=== PATIENT | female | born 1945 | race Caucasian/White ===

== ENCOUNTER 2023-05-23 10:42 | Outpatient (AMB) | payer MEDICARE, SELFPAY ==
--- NOTE | 2023-05-23 10:45 | A.OFFVIS_ITS ---
Intake Vital Signs 05/23/23 10:52 Height 5 ft 4 in Weight 174 lb BMI 29.9 BP 145/71 H Blood Pressure Location Lt brachial Position Sitting Respiration 14 Pulse 93 Pulse Source Pulse Oximeter Pulse Oximetry (%) 98 Oxygen Delivery Method Room Air Intake Visit Reasons: LOW BACK PAIN Allergies codeine Adverse Reaction (Intermediate, Verified 05/23/23 10:53) Nausea and Vomiting Medication List - Last Reconciled 05/23/23 by Lilia Corea LPN acetaminophen 1,000 mg PO Q6H PRN alpha lipoic acid 600 mg PO BID antiarthritic combination no.2 (glucosamine-chondroitin) mg PO atorvastatin 10 mg PO BEDTIME biotin mcg PO butterbur root extract (Petadolex) mg PO chlorthalidone 25 mg PO DAILY cholecalciferol (vitamin D3) 25 mcg PO DAILY gabapentin 100 mg PO TID levothyroxine 50 mcg PO DAILY multivitamin 1 tab PO DAILY valsartan 80 mg PO BID verapamil ER 240 mg PO DAILY HPI LOW BACK PAIN HPI Details 74-year-old female who presents today to the office for a new patient evaluation of low back pain. The pain is localized to the left SIJ area that started in 2021. It is described as an aching, stabbing sensation. It is rated at 7-8/10 in intensity. The pain starts in the low SI joint area and radius towards the left buttock and then radiates down to her mid-thigh area. The pain is worse when she first wakes up in the morning, when it is rated at 9/10, but it improves. Tylenol and oral medications make it better. She is currently taking gabapentin 100 milligrams of 1-3 tablets as needed in addition to extra strength Tylenol three times a day. She had two sacroiliac joint injections with Dr. Zeng that provided 80% relief for a few hours. She was referred to us for consideration of left sacroiliac joint nerve stimulation therapy. There was also a question of possible facet disease. She has not had any facet blocks yet. The patient has knee pain. The patient had cortisone injection in the past which lasted about 3-4 weeks. She is scheduled for gel injection for her knee pain. [facility] Medical History (Updated 05/23/23 @ 16:34 by Jama Hull MD) Lumbar facet arthropathy Disorder of sacrum Review of Systems Const All systems reviewed & are unremarkable except as noted in HPI and below Physical Exam Vital Signs: Last Vital Signs Pulse 93 05/23/23 10:52 Resp 14 05/23/23 10:52 BP 145/71 H 05/23/23 10:52 Pulse Ox 98 05/23/23 10:52 Oxygen Delivery Method Room Air 05/23/23 10:52 BMI result Body Mass Index 29.9 General: Appears afebrile. Alert and oriented. Mood and affect appropriate. Follows and participates in conversation appropriately. Respiratory effort is unlabored. Able to transition from sit to stand unassisted. Ambulates with bilaterally normal heel strike and toe off. Significant tenderness on palpation overlying left SI joint. Results Reviewed Results Reviewed: No imaging is available for review. 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 I will place a referral for psychology clearance. Once we have received psychology clearance, we will plan for a trial of left medial cluneal nerve stimulator trial with a [employer] device. The patient will receive a call from [employer] for the psychology assessment. I also talked about temporary nerve stimulation of medial branches for facet mediated pain that we can attempt in case of incomplete relief with PNS implant. Justification for interventional therapy: * Patient with average pain > 6/10 * Patient has exhausted conservative therapy including physical therapy and oral medications * Diagnostic nerve block provided 80% relief during the anesthetic phase, twice Scribed for Dr. Hull by Jasson Wayne, medical office receptionist, on 05/23/2023. I, Dr. Hull, have personally reviewed and agree with the information entered by the scribe. Coding Level of Care Code New Pt Level 4 (91575) Diagnoses Cluneal neuropathy G58.8 Sacroiliac joint dysfunction M53.3
[2023-05-23 10:52] VITALS: BP 145/71; PULSE 93; RESP 14; O2SAT 98; BMI 29.9
== END 2023-05-23 11:19 | disposition home or self-care (01) ==
PROVIDERS: PCP Physical Medicine & Rehabilitation; Visit Provider Internal Medicine
DX: M53.3 Sacrococcygeal disorders, not elsewhere classified (principal); G58.8 Other specified mononeuropathies
CPT/HCPCS: 99204

== ENCOUNTER → 2023-05-23 10:42 | Outpatient (BNVA) | payer MEDICARE, SELFPAY | PROVIDERS: PCP Physical Medicine & Rehabilitation; Visit Provider Internal Medicine ==

== ENCOUNTER 2023-08-10 10:44 | Day surgery (SDC) | payer MEDICARE, SELFPAY ==
--- NOTE | 2023-08-09 13:21 | HO.ANESPROP2 ---
Documented by User: Kirsten Navas NP 08/09/23 13:22 HPI - Anesthesia Eval Consult details Narrative: 77yo F for Left Cluneal Nerve Stim Trial Per med list, incomplete PMHx provided by surgical office. Likely htn, hld, hypothyroid PMFSH Active Problems Active Problems: All Active Problems (Updated 05/23/23 @ 16:34 by Jama Hull MD) Sacroiliac joint dysfunction (Acute) Cluneal neuropathy (Acute) Past Medical History Medical History (Updated 05/23/23 @ 16:34 by Jama Hull MD) Lumbar facet arthropathy Disorder of sacrum Surgical History Surgical History (Updated 08/10/23 @ 11:21 by Stacie Duncan) H/O breast surgery Previous section Social History Social History Patient Tobacco Use Status: Never used Tobacco Use of substances other than those prescribed or required for medical reasons: No Are you DNR?: No Advance Directives: No Advance Directives Information Provided: Yes Meds Allergies Allergy/AdvReac Type Severity Reaction Status Date / Time codeine AdvReac Intermediate Nausea and Verified 08/10/23 11:21 Vomiting Home Medications Medication Instructions Recorded Confirmed Last Taken Type acetaminophen 500 mg capsule 1,000 mg PO Q6H PRN Pain 05/23/23 08/10/23 Unknown History alpha lipoic acid 600 mg capsule 600 mg PO BID 05/23/23 08/10/23 Unknown History antiarthritic combination no.2 900 900 mg PO DAILY 05/23/23 08/10/23 Unknown History mg tablet (glucosamine-chondroitin) atorvastatin 10 mg tablet 10 mg PO BEDTIME 05/23/23 08/10/23 08/10/23 History biotin 5,000 mcg chewable tablet 5,000 mcg PO DAILY 05/23/23 08/10/23 Unknown History butterbur root extract 75 mg 75 mg PO BID 05/23/23 08/10/23 08/10/23 History capsule (Petadolex) chlorthalidone 25 mg tablet 25 mg PO DAILY 05/23/23 08/10/23 08/10/23 History cholecalciferol (vitamin D3) 25 25 mcg PO DAILY 05/23/23 08/10/23 Unknown History mcg (1,000 unit) capsule gabapentin 100 mg capsule 100 mg PO TID 05/23/23 08/10/23 Unknown History levothyroxine 50 mcg capsule 50 mcg PO DAILY 05/23/23 08/10/23 Unknown History multivitamin 1 tab PO DAILY 05/23/23 08/10/23 Unknown History valsartan 80 mg tablet 80 mg PO BID 05/23/23 08/10/23 08/10/23 History verapamil 240 mg 24 hr 240 mg PO DAILY 05/23/23 08/10/23 08/09/23 History capsule,extended release Assessment and Plan Assessment Anesthesia Assessment: Chart Reviewed Documented by User: Juju Eckert MD 08/10/23 13:52 [facility] Past Medical History Medical History (Updated 05/23/23 @ 16:34 by Jama Hull MD) Lumbar facet arthropathy Disorder of sacrum Family History Family history of problems with anesthesia: No Surgical History Surgical History (Updated 08/10/23 @ 11:21 by Stacie Duncan) H/O breast surgery Previous section History of Problems with Anesthesia: No Social History Social History Patient Tobacco Use Status: Never used Tobacco Use of substances other than those prescribed or required for medical reasons: No Are you DNR?: No Advance Directives: No Advance Directives Information Provided: Yes Meds Allergies Allergy/AdvReac Type Severity Reaction Status Date / Time codeine AdvReac Intermediate Nausea and Verified 08/10/23 11:21 Vomiting Home Medications Medication Instructions Recorded Confirmed Last Taken Type acetaminophen 500 mg capsule 1,000 mg PO Q6H PRN Pain 05/23/23 08/10/23 Unknown History alpha lipoic acid 600 mg capsule 600 mg PO BID 05/23/23 08/10/23 Unknown History antiarthritic combination no.2 900 900 mg PO DAILY 05/23/23 08/10/23 Unknown History mg tablet (glucosamine-chondroitin) atorvastatin 10 mg tablet 10 mg PO BEDTIME 05/23/23 08/10/23 08/10/23 History biotin 5,000 mcg chewable tablet 5,000 mcg PO DAILY 05/23/23 08/10/23 Unknown History butterbur root extract 75 mg 75 mg PO BID 05/23/23 08/10/23 08/10/23 History capsule (Petadolex) chlorthalidone 25 mg tablet 25 mg PO DAILY 05/23/23 08/10/23 08/10/23 History cholecalciferol (vitamin D3) 25 25 mcg PO DAILY 05/23/23 08/10/23 Unknown History mcg (1,000 unit) capsule gabapentin 100 mg capsule 100 mg PO TID 05/23/23 08/10/23 Unknown History levothyroxine 50 mcg capsule 50 mcg PO DAILY 05/23/23 08/10/23 Unknown History multivitamin 1 tab PO DAILY 05/23/23 08/10/23 Unknown History valsartan 80 mg tablet 80 mg PO BID 05/23/23 08/10/23 08/10/23 History verapamil 240 mg 24 hr 240 mg PO DAILY 05/23/23 08/10/23 08/09/23 History capsule,extended release Exam Airway Mallampati Class: II (multiple caps laterally) TM Dist: >3cm Neck ROM: Full Heart: rrr Lungs: cta Assessment and Plan Assessment Anesthesia Assessment: Anesthesia Plan Discussed Final Anesthetic Review Family History of Problems with Anesthesia: No History of Problems with Anesthesia: No NPO: Yes ASA Class: II Final Preanesthetic Review: No Changes in Pt Med Stat, Meds/Allgs Chart Reviewed and Consent Obtained/Reviewed Patient Risk: Intermediate Procedure Risk: Intermediate Anesthetic Plan Anesthetic Plan: MAC: Disposition: Standard PACU
--- NOTE | ~2023-08-10 | FL_ITS ---
EXAMINATION: XR FLUOROSCOPY WITH IMAGES CLINICAL INFORMATION: Cluneal nerve Stim trial. COMPARISON: None available. TECHNIQUE: Fluoroscopy Supervised By: Dr. Jama Hull. Fluoroscopy Time: 29.4 seconds. Cumulative Dose: 10.76 mGy. DAP: Not available on this machine. Images: 5. FINDINGS: Images demonstrate needle or cannula followed by lead projecting over the soft tissues over the left posterior lower lumbar spine and sacrum. FL/FL guidance in OR IMPRESSION: Fluoroscopy guidance for pain management procedure.
[2023-08-10 11:25] VITALS: BP 147/70; PULSE 94; RESP 16; TEMP 36.3; O2SAT 99; BMI 29.4
[2023-08-10] MEDS: Lactated Ringers 1,000 ML 100 ML IVCONT (12:19)
[2023-08-10 13:23] LABS: MRSA Nasal PCR NEGATIVE (Negative); SA Nasal PCR NEGATIVE (Negative)
[2023-08-10 14:55] VITALS: BP 137/68; PULSE 79; RESP 13; TEMP 36.1; O2SAT 100
--- NOTE | 2023-08-10 15:05 | MHC.SHP ---
Pre-Procedural Eval Section A Date of Service: 08/10/23 The patient is an INPATIENT: No Changes since office visit: Yes Patient answered all questions The History & Physical has been completed within 30 days and I have reviewed it.: No Section B Chief Complaint: Other specified mononeuropathies Relevant Family History (Specify if Yes): No Relevant Social History: None Present Medications: see Short Stay Collaborative assessment Medical History: No relevant PMH History of Previous Operations: No relevant previous surgery Allergies: Allergies Allergy/AdvReac Type Severity Reaction Status Date / Time codeine AdvReac Intermediate Nausea and Verified 08/10/23 11:21 Vomiting Review of Systems Sugical H&P ROS: Negative: Constitution, Cardiovascular and Respiratory Exam Surgical H&P Exam: Normal: HEENT, Normal: Heart and Normal: Lungs Plan Diagnosis/Plan: Unchanged I have reviewed the history and physical and performed a pertinent physical examination on my patient. No changes have occurred unless specified. Time Spent With Patient Time: Total time managing care of this patient today ____ minutes.
--- NOTE | 2023-08-10 15:06 | PM.OP ---
Brief Operative Note Date of Service: 08/10/23 Pre-op diagnosis: Medial cluneal neuropathy, sacroiliac joint dysfunction, Bertolotti syndrome, intractable low back pain Post-op diagnosis: same Procedure: Medial cluneal nerve stimulation trial Implants: Curonix PNS trial lead Surgeon: Jama Hull MD Anesthesia: MAC Was an Special Warfare Combatant Crewman used for this Procedure?: No Estimated blood loss (mL): 3 Pathology: none sent Condition: stable Disposition: PACU
--- NOTE | 2023-08-10 15:07 | P.OP_ITS ---
Operative Note Operative Note Date of Service: 08/10/23 Narrative: Percutaneous trial of peripheral nerve stimulation of Medial Cluneal Nerve, Left After obtaining written consent, pre-procedure blood pressure and heart rate were stable and recorded in the nursing record. A peripheral IV was started. Antibiotics, cefazolin 2 grams, were given prior to the start of the procedure. The patient was positioned in prone position and sedated by the fine arts packer. The left lumbosacral area was widely prepped with chloraprep and draped in sterile fashion. Using fluoroscopy, the needle entry location was estimated on left side of the lumbar area. The skin at the insertion site was anesthetized with 0.5% lidocaine. A 14 gauge coude needle was used as an introducer. The introducer was advanced subcutaneously along the length of the lumbar paraspinal muscles until contact was established with the sacrum. The introducer was then rotated and walked off the edge of the sacrum overlying the medial cluneal nerves. The stylet was removed. The electrode array was passed through the introducer using a tenting approach at a shallow angle. Fluoroscopy was used to confirm appropriate lead position. Stimulation was performed with the patient awake and good coverage was obtained. The lead was secured using ticron sutures, steri- strips and tegaderms. The patient tolerated the procedure well. No complications were encountered. Following the procedure the patient's vital signs were stable. The patient was discharged home in good condition with post-procedural instructions. Time Out: Immediately prior to the procedure, the following was verbally confirmed that there is a signed consent form and that the correct patient, planned procedure, site and side are consistent with documentation and that necessary equipment and/or blood products are available prior to the start of the case. Complications: none EBL: <5 cc
[2023-08-10 15:10] VITALS: BP 136/65; PULSE 68; RESP 14; O2SAT 100
[2023-08-10 15:25] VITALS: BP 157/81; PULSE 72; RESP 16; O2SAT 100
[2023-08-10 15:40] VITALS: BP 144/66; PULSE 72; RESP 16; TEMP 36.1; O2SAT 100
== END 2023-08-10 15:50 | disposition home or self-care (01) ==
PROVIDERS: Registered Nurse Emergency; PCP Internal Medicine; Visit Provider Internal Medicine
PROC: (CPT 64555; principal; 2023-08-10 12:20)
DX: G58.8 Other specified mononeuropathies (principal); M54.50 Low back pain, unspecified; M46.1 Sacroiliitis, not elsewhere classified; Q76.49 Other congenital malformations of spine, not associated with scoliosis; M46.96 Unspecified inflammatory spondylopathy, lumbar region; Z79.899 Other long term (current) drug therapy; Z88.5 Allergy status to narcotic agent
CPT/HCPCS: 64555; 87640; 87641; C1897; J0690; J2250; J2704; J2795; J3010

== ENCOUNTER → 2023-08-10 10:44 | Outpatient (BNV) | payer MEDICARE, SELFPAY | PROVIDERS: PCP Internal Medicine; Visit Provider Internal Medicine | DX: G58.8 Other specified mononeuropathies (principal) | CPT/HCPCS: 64555 ==

== ENCOUNTER 2023-08-15 09:33 | Outpatient (AMB) | payer MEDICARE, SELFPAY ==
--- NOTE | 2023-08-15 09:48 | A.OFFVIS_ITS ---
Intake Vital Signs 08/15/23 09:50 Height 5 ft 4 in Weight 175 lb BMI 30.0 BP 136/70 Blood Pressure Location Rt brachial Position Sitting Respiration 12 Pulse Source Pulse Oximeter Intake Visit Reasons: S/p Cluneal Nerve PNS Trial W/ Curonix 08/10/23 Allergies codeine Adverse Reaction (Intermediate, Verified 08/15/23 09:56) Nausea and Vomiting Medication List - Last Reconciled 08/15/23 by Lilia Corea LPN acetaminophen 1,000 mg PO Q6H PRN alpha lipoic acid 600 mg PO BID antiarthritic combination no.2 (glucosamine-chondroitin) 900 mg PO DAILY atorvastatin 10 mg PO BEDTIME biotin 5,000 mcg PO DAILY butterbur root extract (Petadolex) 75 mg PO BID chlorthalidone 25 mg PO DAILY cholecalciferol (vitamin D3) 25 mcg PO DAILY gabapentin 100 mg PO TID levothyroxine 50 mcg PO DAILY multivitamin 1 tab PO DAILY valsartan 80 mg PO BID verapamil ER 240 mg PO DAILY HPI S/p Cluneal Nerve PNS Trial W/ Curonix 08/10/23 HPI Details 77-year-old female who presents today to the office for a status post left cluneal nerve PNS trial with Curonix. The patient reports 90% relief following the procedure over the course of trial. She had significant pain relief during the trial. She has been using Tylenol for pain management, but she wants to wean down on the daily dose and therefore would like to proceed with the implant. She rates her pain level at 1-2/10 in intensity during the trial compared to 9-10 at baseline. Past procedure: 08/10/23: Percutaneous trial of peripher al nerve stimulation of Medial Cluneal Nerve, Left: 90% relief for one week. [facility] Medical History (Updated 05/23/23 @ 16:34 by Jama Hull MD) Lumbar facet arthropathy Disorder of sacrum Surgical History (Updated 08/10/23 @ 11:21 by Stacie Duncan) H/O breast surgery Previous section Social History Patient Tobacco Use Status: Never used Tobacco Review of Systems Const All systems reviewed & are unremarkable except as noted in HPI and below Physical Exam Vital Signs: Last Vital Signs Resp 12 08/15/23 09:50 BP 136/70 08/15/23 09:50 BMI result Body Mass Index 30.0 General: Appears afebrile. Alert and oriented. Mood and affect appropriate. Follows and participates in conversation appropriately. Respiratory effort is unlabored. Able to transition from sit to stand unassisted. Ambulates with bilaterally normal heel strike and toe off. Lead removed with tip intact. Results Reviewed Results Reviewed: No imaging is available for review. 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 Discussed the risks and benefits of the procedure with the patient in detail. All questions were answered. The patient is on board with the plan. Justification for interventional therapy: ? Patient with average pain > 6/10 ? Patient has exhausted conservative therapy Scribed for Dr. Hull by Jasson Wayne, medical technologist generalist, on 08/15/2023. I, Dr. Hull, have personally reviewed and agree with the information entered by the scribe. Coding Level of Care Code Est Pt Level 3 (64698) Diagnoses Cluneal neuropathy G58.8
[2023-08-15 09:50] VITALS: BP 136/70; RESP 12
== END 2023-08-15 10:41 | disposition home or self-care (01) ==
PROVIDERS: PCP Physical Medicine & Rehabilitation; Visit Provider Internal Medicine
DX: G58.8 Other specified mononeuropathies (principal)
CPT/HCPCS: 99024

== ENCOUNTER → 2023-08-15 09:33 | Outpatient (BNVA) | payer MEDICARE, SELFPAY | PROVIDERS: PCP Physical Medicine & Rehabilitation; Visit Provider Internal Medicine | DX: G58.8 Other specified mononeuropathies (principal) | CPT/HCPCS: 99212 ==

== ENCOUNTER 2023-10-19 09:36 | Day surgery (SDC) | payer MEDICARE, SELFPAY ==
--- NOTE | ~2023-10-19 | FL_ITS ---
EXAMINATION: XR FLUOROSCOPY WITH IMAGES CLINICAL INFORMATION: Medial cluneal nerve PNS implant. COMPARISON: Intraoperative fluoroscopy dated 08/10/2023. TECHNIQUE: Fluoroscopy Supervised By: Dr. Jama Hull. Fluoroscopy Time: 26.0 seconds. Cumulative Dose: 11.354 mGy. DAP: 3.8697 Gycm2. Images: 2. FINDINGS: There is a mild lumbar levoscoliosis, and there is multi-level lumbar spondylosis. A stimulator lead again projects over the left paralumbar soft tissues and sacrum. FL/FL guidance in OR IMPRESSION: Intraoperative fluoroscopy is provided for pain management procedure. Please see the patient's Operative Report for full procedural details.
[2023-10-19 10:24] VITALS: BMI 30.6
[2023-10-19 10:44] VITALS: BP 147/69; PULSE 87; RESP 16; TEMP 36.1; O2SAT 99
--- NOTE | 2023-10-19 11:25 | HO.ANESPROP2 ---
HPI - Anesthesia Eval Consult details Narrative: for medial cluneal nerve stimulator PMFSH Active Problems Active Problems: All Active Problems (Updated 05/23/23 @ 16:34 by Jama Hull MD) Sacroiliac joint dysfunction (Acute) Cluneal neuropathy (Acute) Past Medical History Medical History (Updated 05/23/23 @ 16:34 by Jama Hull MD) Lumbar facet arthropathy Disorder of sacrum Family History Family history of problems with anesthesia: No Surgical History Surgical History (Updated 08/10/23 @ 11:21 by Stacie Duncan) H/O breast surgery Previous section History of Problems with Anesthesia: No Social History Social History Patient Tobacco Use Status: Never used Tobacco Use of substances other than those prescribed or required for medical reasons: No Are you DNR?: No Advance Directives: No Advance Directives Information Provided: Yes Meds Allergies Allergy/AdvReac Type Severity Reaction Status Date / Time codeine AdvReac Intermediate Nausea and Verified 08/15/23 09:56 Vomiting Home Medications Medication Instructions Recorded Confirmed Last Taken Type acetaminophen 500 mg capsule 1,000 mg PO Q6H PRN Pain 05/23/23 10/19/23 Unknown History alpha lipoic acid 600 mg capsule 600 mg PO BID 05/23/23 10/19/23 Unknown History antiarthritic combination no.2 900 900 mg PO DAILY 05/23/23 10/19/23 Unknown History mg tablet (glucosamine-chondroitin) atorvastatin 10 mg tablet 10 mg PO BEDTIME 05/23/23 10/19/23 08/10/23 History biotin 5,000 mcg chewable tablet 5,000 mcg PO DAILY 05/23/23 10/19/23 Unknown History butterbur root extract 75 mg 75 mg PO BID 05/23/23 10/19/23 08/10/23 History capsule (Petadolex) chlorthalidone 25 mg tablet 25 mg PO DAILY 05/23/23 10/19/23 08/10/23 History cholecalciferol (vitamin D3) 25 25 mcg PO DAILY 05/23/23 10/19/23 Unknown History mcg (1,000 unit) capsule gabapentin 100 mg capsule 100 mg PO TID 05/23/23 10/19/23 Unknown History levothyroxine 50 mcg capsule 50 mcg PO DAILY 05/23/23 10/19/23 Unknown History multivitamin 1 tab PO DAILY 05/23/23 10/19/23 Unknown History valsartan 80 mg tablet 80 mg PO BID 05/23/23 10/19/23 08/10/23 History verapamil 240 mg 24 hr 240 mg PO DAILY 05/23/23 10/19/23 08/09/23 History capsule,extended release Exam Height,Weight and Vital Signs: Height 5 ft 4 in Weight 80.739 kg Last Vital Signs Temp 96.9 F 10/19/23 10:44 Pulse 87 10/19/23 10:44 Resp 16 10/19/23 10:44 BP 147/69 H 10/19/23 10:44 Pulse Ox 99 10/19/23 10:44 O2 Del Method Room Air 10/19/23 10:44 Airway Mallampati Class: I TM Dist: <=3cm Neck ROM: Full Heart: ok Lungs: ok Assessment and Plan Assessment Anesthesia Assessment: Anesthesia Plan Discussed and Chart Reviewed Final Anesthetic Review Family History of Problems with Anesthesia: No History of Problems with Anesthesia: No NPO: Yes ASA Class: III Final Preanesthetic Review: No Changes in Pt Med Stat, Meds/Allgs Chart Reviewed, Consent Obtained/Reviewed and Anes Risks/Benef Reviewed Patient Risk: Intermediate Procedure Risk: Intermediate Anesthetic Plan Anesthetic Plan: MAC: and Agree w/ Assess. and Plan Disposition: Standard PACU
--- NOTE | 2023-10-19 11:36 | MHC.SHP ---
Pre-Procedural Eval Section A - 24 Hr Update-Section A only Date of Service: 10/19/23 The patient is an INPATIENT: No Changes since office visit: Yes Patient answered all questions The patient has been examined within 24 hours of the surgical procedure. The History & Physical has been completed within 30 days and I have reviewed it.: No Section B - Complete if H&P > 30 days Chief Complaint: Other specified mononeuropathies Relevant Family History (Specify if Yes): No Relevant Social History: None Present Medications: see Short Stay Collaborative assessment Medical History: No relevant PMH History of Previous Operations: No relevant previous surgery Allergies: Allergies Allergy/AdvReac Type Severity Reaction Status Date / Time codeine AdvReac Intermediate Nausea and Verified 08/15/23 09:56 Vomiting Review of Systems Sugical H&P ROS: Negative: Constitution, Cardiovascular and Respiratory Exam Surgical H&P Exam: Normal: HEENT, Normal: Heart and Normal: Lungs Plan Diagnosis/Plan: Unchanged I have reviewed the history and physical and performed a pertinent physical examination on my patient. No changes have occurred unless specified. Time Spent With Patient Time: Total time managing care of this patient today ____ minutes.
[2023-10-19 12:15] LABS: MRSA Nasal PCR NEGATIVE (Negative); SA Nasal PCR NEGATIVE (Negative)
[2023-10-19 13:36] VITALS: BP 131/72; PULSE 66; RESP 16; TEMP 36.1; O2SAT 99
--- NOTE | 2023-10-19 13:38 | P.OP_ITS ---
Operative Note Operative Note Date of Service: 10/19/23 Narrative: Peripheral Nerve Stimulator Implant for Middle Cluneal Nerves, Left After obtaining written consent, pre-procedure blood pressure and heart rate were stable and recorded in the nursing record. A peripheral IV was started. Antibiotics, cefazolin 2 g, were given prior to the start of the procedure. The patient was positioned in prone position and sedated by the digital sales executive. The thoracolumbar area was widely prepped with chloraprep and draped in sterile fashion. Using fluoroscopy, the needle entry location was estimated on left side of the lumbar area. The skin at the insertion site was anesthetized with a mixture of 0.5% lidocaine and 0.25% ropivacaine.?The skin entry site was incised with a stab incision using a 15 blade and dissected approximately 1 cm deep using a combination of electrocautery and blunt dissection. A 14 gauge epimed needle was used as an introducer and advanced subcutaneously along the length of the lumbar paraspinal muscles until contact was established with the sacrum on both sides.The introducer was then rotated and walked off the edge of the sacrum overlying the medial cluneal nerves. The 1x4 electrode array was passed through the introducer using a tenting approach at a shallow angle. Fluoroscopy was used to confirm appropriate lead position. The rigid stylet was removed and the copper stylet was inserted. The needles were completely removed. Stimulation was performed and good coverage was obtained. The leads were tied down to the tissue at the insertion sites using 0 Tycron sutures. A pocket was then created in the midline in the thoracic spine area approximately 1 cm from the level of the skin. The skin incision was made with a 15 blade followed by a combination of electrocautery and blunt dissection. The lead was tunneled to the pocket site. A single knot was then placed on the lead to secure the copper stylet in place. The excess lead was coiled and tied with 0 silk ties. The coiled portion of the lead was then placed in the pocket. The pocket was then irrigated with vancomycin solution. Th incision sites were closed with 3-0 Vicryl for deep dermal layer and 4-0 Vicryl for skin. Both incision sites were dressed with Exofin, steri-strips and tegaderm dressings. The patient tolerated the procedure well. No complications were encountered. Following the procedure the patient's vital signs were stable. The patient was discharged home in good condition with post-procedural instructions. Time Out: Immediately prior to the procedure, the following was verbally confirmed that there is a signed consent form and that the correct patient, planned procedure, site and side are consistent with documentation and that necessary equipment and/or blood products are available prior to the start of the case. Complications: none EBL: 10 cc
--- NOTE | 2023-10-19 13:41 | P.BOP_ITS ---
Brief Operative Note Date of Service: 10/19/23 Pre-op diagnosis: Left middle cluneal neuropathy, sacroiliac joint pain Post-op diagnosis: same Procedure: Left middle cluneal nerve stimulator implant Implants: Curonix PNS system Surgeon: Jama Hull MD Anesthesia: MAC Was an Treasury Specialist used for this Procedure?: No Estimated blood loss (mL): 10 Pathology: none sent Condition: stable Disposition: PACU
[2023-10-19 13:51] VITALS: BP 135/68; PULSE 72; RESP 16; O2SAT 97
[2023-10-19 14:06] VITALS: BP 136/73; PULSE 75; RESP 16; O2SAT 97
--- NOTE | 2023-10-19 14:17 | HO.ANESEVENT ---
Anesthesia Event Note Date of Service: 11/23/23 Event Note: Mrs. Boudreaux underwent a Cluneal nerve peripheral nerve stimulator implant today at [facility] under MAC anesthesia. The surgery was completed without difficulty. However, during the procedure, while the patient was lightly sedated, she spit up about 1/2 a teaspoon of coffee grounds. In discussion with our GI docs, our opinion is that this represents a minor 'stress gastritis' bleed. She has no previous GI symptoms, no prior h/o GERD, altho she does take a Tums occasionally. Furthermore, the patient feels well postoperatively, is having no symptoms, and her vital signs are entirely stable. Therefore, there is no need for a hemoglobin check in our opinion. We will send her home with a prescription for one week of PPI, with follow up with her regular physician. She has an appointment on October 27, which should serve that purpose. We further recommend that because it cannot be said with certainty that this is benign, it would be garcia to follow up with an upper endoscopy at her earliest convenience. I've discussed all the above with her at length, and also instructed her that should she feel any dizziness, pass out, or spit up further coffee grounds or blood, or should her stool turn dark later today or in the next few days, she should be taken to the ED immediately, and can give them a copy of this letter. (I have given the patient a copy of this note to give to her physician.) . Time Spent With Patient Time: Total time managing care of this patient today 30 minutes.
[2023-10-19 14:20] VITALS: BP 162/80; PULSE 68; RESP 16; O2SAT 98
[2023-10-19 14:35] VITALS: BP 154/76; PULSE 72; RESP 16; TEMP 36.2; O2SAT 98
== END 2023-10-19 15:22 | disposition home or self-care (01) ==
PROVIDERS: Registered Nurse Emergency; PCP Internal Medicine; Visit Provider Internal Medicine
PROC: (CPT 64590; principal; 2023-10-19 11:20)
DX: G58.9 Mononeuropathy, unspecified (principal); M46.1 Sacroiliitis, not elsewhere classified; K29.01 Acute gastritis with bleeding; Y83.8 Other surgical procedures as the cause of abnormal reaction of the patient, or of later complication, without mention of misadventure at the time of the procedure
CPT/HCPCS: 64590; 64555 ×2; 87640; 87641; C1816; J0690; J2405; J2704; J2765; J2795

== ENCOUNTER → 2023-10-19 09:36 | Outpatient (BNV) | payer MEDICARE, SELFPAY | PROVIDERS: PCP Internal Medicine; Visit Provider Internal Medicine | DX: G58.8 Other specified mononeuropathies (principal) | CPT/HCPCS: 64555; 64590 ==

== ENCOUNTER 2023-10-24 10:09 | Outpatient (AMB) | payer MEDICARE, SELFPAY ==
--- NOTE | 2023-10-24 10:32 | A.OFFVIS_ITS ---
Intake Vital Signs 10/24/23 10:34 Height 5 ft 4 in Weight 172 lb BMI 29.5 BP 139/63 Blood Pressure Location Lt brachial Position Sitting Respiration 12 Pulse 90 Pulse Source Pulse Oximeter Pulse Oximetry (%) 93 Oxygen Delivery Method Room Air Intake Visit Reasons: S/p Medial Cluneal Nerve Stim IMPLANT 10/19/23 Allergies codeine Adverse Reaction (Intermediate, Verified 10/24/23 10:44) Nausea and Vomiting Medication List - Last Reconciled 10/24/23 by Lilia Corea LPN acetaminophen 1,000 mg PO Q6H PRN alpha lipoic acid 600 mg PO BID antiarthritic combination no.2 (glucosamine-chondroitin) 900 mg PO DAILY atorvastatin 10 mg PO BEDTIME biotin 5,000 mcg PO DAILY butterbur root extract (Petadolex) 75 mg PO BID chlorthalidone 25 mg PO DAILY cholecalciferol (vitamin D3) 25 mcg PO DAILY gabapentin 100 mg PO TID levothyroxine 50 mcg PO DAILY multivitamin 1 tab PO DAILY pantoprazole 40 mg PO DAILY valsartan 80 mg PO BID verapamil ER 240 mg PO DAILY HPI S/p Medial Cluneal Nerve Stim IMPLANT 10/19/23 HPI Details 77-year-old female who presents today to the office for a status post medial cluneal nerve stim implant. The patient reports notable relief following the procedure. The patient slipped and fell in her driveway due to the snow and wet surface. She reports mild discomfort in her back when walking or disconnecting the device. She states that the device antenna was pulled out when removing the belt this morning. She also reports shoulder pain, which is secondary to biceps tendonitis. Past procedures: 10/19/23: Peripheral Nerve Stimulator Im plant for Middle Cluneal Nerves, Left: Notable initial relief. 08/10/23: Percutaneous trial of peripher al nerve stimulation of Medial Cluneal Nerve, Left: 90% relief for one week. [facility] Medical History (Updated 05/23/23 @ 16:34 by Jama Hull MD) Lumbar facet arthropathy Disorder of sacrum Surgical History (Updated 08/10/23 @ 11:21 by Stacie Duncan) H/O breast surgery Previous section Social History Patient Tobacco Use Status: Never used Tobacco Review of Systems Const All systems reviewed & are unremarkable except as noted in HPI and below Physical Exam Vital Signs: Last Vital Signs Pulse 90 10/24/23 10:34 Resp 12 10/24/23 10:34 BP 139/63 10/24/23 10:34 Pulse Ox 93 10/24/23 10:34 Oxygen Delivery Method Room Air 10/24/23 10:34 BMI result Body Mass Index 29.5 General: Appears afebrile. Alert and oriented. Mood and affect appropriate. Follows and participates in conversation appropriately. Respiratory effort is unlabored. Able to transition from sit to stand unassisted. Ambulates with bilaterally normal heel strike and toe off. Incision sites are clean dry and intact. Results Reviewed Results Reviewed: No imaging is available for review. Assessment & Plan Assessment & Plan (1) Sacroiliac joint dysfunction: Code(s): M53.3 - Sacrococcygeal disorders, not elsewhere classified (2) Cluneal neuropathy: Code(s): G58.8 - Other specified mononeuropathies Plan The patient had a fall, and there was concern for lead migration, but we were able to achieve good paresthesia coverage on programming today, so there is no imaging necessary. I cancelled her previously ordered x rays. The patient will follow up in one week. Scribed for Dr. Hull by Jasson Wayne, medical billing specialist, on 10/24/2023. I, Dr. Hull, have personally reviewed and agree with the information entered by the scribe. Coding Level of Care Code Est Pt Level 3 (73220) Diagnoses Sacroiliac joint dysfunction M53.3 Cluneal neuropathy G58.8
[2023-10-24 10:34] VITALS: BP 139/63; PULSE 90; RESP 12; O2SAT 93; BMI 29.5
== END 2023-10-24 11:01 | disposition home or self-care (01) ==
PROVIDERS: PCP Physical Medicine & Rehabilitation; Visit Provider Internal Medicine
DX: M53.3 Sacrococcygeal disorders, not elsewhere classified (principal); G58.8 Other specified mononeuropathies
CPT/HCPCS: 99024

== ENCOUNTER → 2023-10-24 10:09 | Outpatient (BNVA) | payer MEDICARE, SELFPAY | PROVIDERS: PCP Physical Medicine & Rehabilitation; Visit Provider Internal Medicine | DX: M53.3 Sacrococcygeal disorders, not elsewhere classified (principal); G58.8 Other specified mononeuropathies | CPT/HCPCS: 99212 ==

== ENCOUNTER 2023-10-31 10:07 | Outpatient (AMB) | payer MEDICARE, SELFPAY ==
[2023-10-31 10:12] VITALS: BP 131/64; PULSE 79; RESP 12; O2SAT 99; BMI 29.5
--- NOTE | 2023-10-31 10:12 | MHC.OFFVIS ---
Intake Vital Signs 10/31/23 10:12 Height 5 ft 4 in Weight 172 lb BMI 29.5 BP 131/64 Blood Pressure Location Lt brachial Position Sitting Respiration 12 Pulse 79 Pulse Source Pulse Oximeter Pulse Oximetry (%) 99 Oxygen Delivery Method Room Air Intake Visit Reasons: S/p Medial Cluneal Nerve Stim IMPLANT 10/19/23 Allergies codeine Adverse Reaction (Intermediate, Verified 10/31/23 10:13) Nausea and Vomiting Medication List - Last Reconciled 10/31/23 by Lilia Corea LPN acetaminophen 1,000 mg PO Q6H PRN alpha lipoic acid 600 mg PO BID antiarthritic combination no.2 (glucosamine-chondroitin) 900 mg PO DAILY atorvastatin 10 mg PO BEDTIME biotin 5,000 mcg PO DAILY butterbur root extract (Petadolex) 75 mg PO BID chlorthalidone 25 mg PO DAILY cholecalciferol (vitamin D3) 25 mcg PO DAILY gabapentin 100 mg PO TID levothyroxine 50 mcg PO DAILY multivitamin 1 tab PO DAILY pantoprazole 40 mg PO DAILY valsartan 80 mg PO BID verapamil ER 240 mg PO DAILY HPI S/p Medial Cluneal Nerve Stim IMPLANT 10/19/23 HPI Details 77-year-old female who presents today to the office for a status post medial cluneal nerve stim implant. The patient reports continuous significant relief. She reports a dull pain in her back. She is able to move around without severe pain. She is using the device most of the time and disconnects only for charging or driving. She had a shower on Tuesday. She avoids strenuous work, including heavy lifting and bending. Past procedures: 10/19/23: Peripheral Nerve Stimulator Implant for Middle Cluneal Nerves, Left: Notable initial relief. 08/10/23: Percutaneous trial of peripheral nerve stimulation of Medial Cluneal Nerve, Left: 90% relief for one week. [facility] Medical History (Updated 05/23/23 @ 16:34 by Jama Hull MD) Lumbar facet arthropathy Disorder of sacrum Surgical History (Updated 08/10/23 @ 11:21 by Stacie Duncan) H/O breast surgery Previous section Social History Patient Tobacco Use Status: Never used Tobacco Review of Systems Const All systems reviewed & are unremarkable except as noted in HPI and below Physical Exam Vital Signs: Last Vital Signs Pulse 79 10/31/23 10:12 Resp 12 03/04/24 10:12 BP 131/64 10/31/23 10:12 Pulse Ox 99 10/31/23 10:12 Oxygen Delivery Method Room Air 10/31/23 10:12 BMI result Body Mass Index 29.5 General: Appears afebrile. Alert and oriented. Mood and affect appropriate. Follows and participates in conversation appropriately. Respiratory effort is unlabored. Able to transition from sit to stand unassisted. Ambulates with bilaterally normal heel strike and toe off. Incision sites are clean, dry and intact. Results Reviewed Results Reviewed: No imaging is available for review. Assessment & Plan Assessment & Plan (1) Sacroiliac joint dysfunction: Code(s): M53.3 - Sacrococcygeal disorders, not elsewhere classified (2) Cluneal neuropathy: Code(s): G58.8 - Other specified mononeuropathies Plan The patient will continue the stimulation therapy as needed. Device reprogrammed. The site was clean, dry, and intact. The patient is clear for a shower and driving. The patient will follow up as needed. Scribed for Dr. Hull by Jasson Wayne, medical i d sales, on 10/31/2023. I, Dr. Hull, have personally reviewed and agree with the information entered by the scribe. Coding Level of Care Code Est Pt Level 3 (14891) Diagnoses Sacroiliac joint dysfunction M53.3 Cluneal neuropathy G58.8
== END 2023-10-31 10:43 | disposition home or self-care (01) ==
PROVIDERS: PCP Physical Medicine & Rehabilitation; Visit Provider Internal Medicine
DX: M53.3 Sacrococcygeal disorders, not elsewhere classified (principal); G58.8 Other specified mononeuropathies
CPT/HCPCS: 99213

== ENCOUNTER → 2023-10-31 10:07 | Outpatient (BNVA) | payer MEDICARE, SELFPAY | PROVIDERS: PCP Physical Medicine & Rehabilitation; Visit Provider Internal Medicine | DX: M53.3 Sacrococcygeal disorders, not elsewhere classified (principal); G58.8 Other specified mononeuropathies | CPT/HCPCS: 99212 ==

== ENCOUNTER 2024-06-01 09:47 | Outpatient (AMB) | payer MEDICARE, SELFPAY ==
[2024-06-01 09:50] VITALS: BP 156/74; PULSE 86; RESP 16; O2SAT 97; BMI 30.4
--- NOTE | 2024-06-01 09:50 | A.OFFVIS_ITS ---
Vital Signs 06/01/24 09:50 Height 5 ft 4 in Weight 177 lb BMI 30.4 BP 156/74 H Blood Pressure Location Lt brachial Position Sitting Respiration 16 Pulse 86 Pulse Source Pulse Oximeter Pulse Oximetry (%) 97 Oxygen Delivery Method Room Air Intake Visit Reasons: Right Sided Lower Hip Pain Allergies codeine Adverse Reaction (Intermediate, Verified 06/01/24 09:52) Nausea and Vomiting Medication List - Last Reconciled 06/01/24 by Lilia Corea LPN acetaminophen 1,000 mg PO Q6H PRN alpha lipoic acid 600 mg PO BID antiarthritic combination no.2 (glucosamine-chondroitin) 900 mg PO DAILY atorvastatin 10 mg PO BEDTIME biotin 5,000 mcg PO DAILY butterbur root extract (Petadolex) 75 mg PO BID chlorthalidone 25 mg PO DAILY cholecalciferol (vitamin D3) 25 mcg PO DAILY gabapentin 100 mg PO TID levothyroxine 50 mcg PO DAILY multivitamin 1 tab PO DAILY pantoprazole 40 mg PO BID valsartan 80 mg PO BID verapamil ER 240 mg PO DAILY HPI HPI Right Sided Lower Hip Pain: Details: 78-year-old female who presents today to the office for a right sided lower hip pain. She reports radiating pain down her leg. Her right side is more bothersome than her left side. She has difficulty walking or climbing stairs. She has experienced some weakness since March 2024. She has some neuropathy in her leg due to her old age. She has difficulty standing up from the chair without any support. She was recommended increasing the frequency, but she does not know how to do that. She started meloxicam for the leg soreness when walking, which was prescribed by Dr. Zeng. She developed diarrhea and will follow up with her GI specialist. She has not tried physical therapy in the past for leg pain. Past procedures: 10/19/23: Peripheral Nerve Stimulator Implant for Middle Cluneal Nerves, Left: Notable initial relief. 08/10/23: Percutaneous trial of peripheral nerve stimulation of Medial Cluneal Nerve, Left: 90% relief for one week. [facility] Medical History (Updated 06/26/24 @ 08:29 by Jama Hull MD) Lumbar facet arthropathy Disorder of sacrum Surgical History (Updated 08/10/23 @ 11:21 by Stacie Duncan RN) H/O breast surgery Previous section Social History Patient Tobacco Use Status: Never used Tobacco Review of Systems Const All systems reviewed & are unremarkable except as noted in HPI and below Physical Exam Vital Signs: Last Vital Signs Pulse 86 06/01/24 09:50 Resp 16 06/01/24 09:50 BP 156/74 H 06/01/24 09:50 Pulse Ox 97 06/01/24 09:50 Oxygen Delivery Method Room Air 06/01/24 09:50 BMI result Body Mass Index 30.4 General: Appears afebrile. Alert and oriented. Mood and affect appropriate. Follows and participates in conversation appropriately. Respiratory effort is unlabored. Able to transition from sit to stand unassisted. Ambulates with bilaterally normal heel strike and toe off. There is tenderness on palpation overlying the ischial bursa on the right side. Results Reviewed Results Reviewed: No imaging is available for review. Assessment & Plan Assessment & Plan (1) Lumbar spinal stenosis: Code(s): M48.061 - Spinal stenosis, lumbar region without neurogenic claudication Category: Medical (2) Ischial bursitis: Code(s): M70.70 - Other bursitis of hip, unspecified hip Category: Medical (3) Cluneal neuropathy: Code(s): G58.8 - Other specified mononeuropathies Category: Medical Plan We will schedule her for a right ischial bursa injection under fluoroscopy for ischial bursitis. Discussed the risks and benefits of the procedure with the patient in detail. All questions were answered. The patient is on board with the plan. Justification for interventional therapy: ? Patient with average pain > 6/10 ? Patient has exhausted conservative therapy ? Patient unable to tolerate physical therapy due to pain ? Previous injection provided >50% relief x > 2 weeks. . Patient has a good understanding of their pain condition and has appropriate mental and social support For her left lower back pain, [facility] to set up an appointment for her to reprogram her device. For her quadricep muscle weakness, I will order an MRI of the lumbar spine to assess the source of lower extremity weakness that has been worsening over the past two months. Scribed for Dr. Hull by Jasson Wayne, faculty i on call medical assistant, on 06/01/2024. I, Dr. Hull, have personally reviewed and agree with the information entered by the scribe. Orders: Orders MR lumbar spine wo con 06/01/24 M48.061 - Spinal stenosis, lumbar region without neurogenic claudication Medications: Changed From pantoprazole 40 mg PO DAILY 7 tabs 0RF To pantoprazole 40 mg PO BID Coding Level of Care Code Est Pt Level 4 (95788) Diagnoses Lumbar spinal stenosis M48.061 Ischial bursitis M70.70 Cluneal neuropathy G58.8
== END 2024-06-01 10:35 | disposition home or self-care (01) ==
PROVIDERS: PCP Physical Medicine & Rehabilitation; Visit Provider Internal Medicine
DX: M48.061 Spinal stenosis, lumbar region without neurogenic claudication (principal); M70.70 Other bursitis of hip, unspecified hip; G58.8 Other specified mononeuropathies
CPT/HCPCS: 99214

== ENCOUNTER → 2024-06-01 09:47 | Outpatient (BNVA) | payer MEDICARE, SELFPAY | PROVIDERS: PCP Physical Medicine & Rehabilitation; Visit Provider Internal Medicine | DX: M48.061 Spinal stenosis, lumbar region without neurogenic claudication (principal); M70.70 Other bursitis of hip, unspecified hip; G58.8 Other specified mononeuropathies | CPT/HCPCS: 99212 ==

== ENCOUNTER 2024-06-28 06:15 | Outpatient (REF) | payer MEDICARE, SELFPAY | END 2024-06-28 06:16 | disposition home or self-care (01) | LOC: CF 06:15 | PROVIDERS: Visit Provider Internal Medicine | DX: M53.3 Sacrococcygeal disorders, not elsewhere classified (principal); M70.70 Other bursitis of hip, unspecified hip | CPT/HCPCS: 20610; J2003; J3300; J3301; Q9967 ==

== ENCOUNTER 2024-06-28 10:28 | Outpatient (AMB) | payer MEDICARE, SELFPAY ==
--- NOTE | 2024-06-28 10:39 | A.OFFVIS_ITS ---
Vital Signs 06/28/24 10:40 06/28/24 11:06 BP 143/74 H 148/75 H Blood Pressure Location Rt brachial Lt brachial Position Sitting Sitting Pulse 66 77 Pulse Source Pulse Oximeter Pulse Oximeter Pulse Oximetry (%) 98 97 Oxygen Delivery Method Room Air Room Air Intake Visit Reasons: right ischial bursa inj Allergies codeine Adverse Reaction (Intermediate, Verified 06/01/24 09:52) Nausea and Vomiting HPI HPI right ischial bursa inj: Details: Patient presents for scheduled procedure. Denies any recent cough, cold, infection, fever or other significant changes in medical history since last office visit. [facility] Medical History (Updated 06/26/24 @ 08:29 by Jama Hull MD) Lumbar facet arthropathy Disorder of sacrum Surgical History (Updated 08/10/23 @ 11:21 by Stacie Duncan RN) H/O breast surgery Previous section Social History Patient Tobacco Use Status: Never used Tobacco Physical Exam Vital Signs: Last Vital Signs Pulse 77 06/28/24 11:06 BP 148/75 H 06/28/24 11:06 Pulse Ox 97 06/28/24 11:06 Oxygen Delivery Method Room Air 06/28/24 11:06 Office Procedures AMB Joint Injection/Aspiration Joint Injection/Aspiration Primary Site: other (Right ischial bursa) Prep: site was prepped using sterile technique Injected: 40 mg of, Kenalog, with 3 mL of (Ropivacaine 0.25%) and other (In the ischial bursa) Approach Used: other (Fluoroscopically guided) Procedure: The patient tolerated the procedure well, but had some pain with the injection and there was some relief with the local anesthesia Coding Additional procedure code (CPT) needed Office Meds Kenalog 40 mg/mL suspension for injection Performing Provider: Jama Hull MD Performing Location: [facility] Administered by: Jama Hull MD on 06/28/24 12:53 Dose Route Admin Location Dispensed Lot Number Expiration Date [facility] [employer] 40 mg intrabursal 1 mL Assessment & Plan Assessment & Plan (1) Ischial bursitis: Code(s): M70.70 - Other bursitis of hip, unspecified hip Category: Medical Plan Patient is status post right ischial bursa injection under fluoroscopic guidance. Patient tolerated procedure well and was discharged home in stable condition with discharge instructions. All questions were answered. We will follow-up via telephone or in clinic to assess response to therapy. A follow-up appointment was made during today's visit. Orders: Orders FL guidance in treatment room Today Brenda Payne APRN, [employer] M53.3 - Sacrococcygeal disorders, not elsewhere classified AMB Joint Injection/Aspiration Today Jama Hull MD M70.70 - Other bursitis of hip, unspecified hip Medications: New Kenalog (triamcinolone acetonide) 40 mg intrabursal ONCE 1 mL 0RF NS Jama Hull MD M70.70 - Other bursitis of hip, unspecified hip Coding Level of Care Code Procedure Only Diagnoses Ischial bursitis M70.70
[2024-06-28 10:40] VITALS: BP 143/74; PULSE 66; O2SAT 98
[2024-06-28 11:06] VITALS: BP 148/75; PULSE 77; O2SAT 97
== END 2024-06-28 11:09 | disposition home or self-care (01) ==
LOC: HO.PMCPRC 10:28
PROVIDERS: PCP Physical Medicine & Rehabilitation; Visit Provider Internal Medicine
DX: M70.71 Other bursitis of hip, right hip (principal)
CPT/HCPCS: 20610; 77002

== ENCOUNTER 2024-08-03 09:55 | Outpatient (AMB) | payer MEDICARE, SELFPAY ==
--- NOTE | 2024-08-03 10:04 | A.OFFVIS_ITS ---
Vital Signs 08/03/24 10:08 Height 5 ft 4 in Weight 174 lb 4 oz BMI 29.9 BP 124/70 Blood Pressure Location Rt brachial Position Sitting Respiration 16 Pulse 77 Pulse Oximetry (%) 98 Oxygen Delivery Method Room Air Intake Visit Reasons: s/p right ischial bursa inj Intake Note: Patient presents for right ischial bursa injection. Allergies codeine Adverse Reaction (Intermediate, Verified 08/03/24 10:08) Nausea and Vomiting HPI HPI s/p right ischial bursa inj: Details: 78-year-old female who presents today to the office for a status post right ischial bursa injection. The patient reports initial 90% relief, which came down to 75% relief following the procedure. She has significant pain relief from the injection. She is able to stand from the chairs, which she was unable to do prior to the injection. She had device reprogramming by senior sales representative after her May 2024 visit. She has noticed very mild weakness and pain sensation in the middle of the waist region. She has tried meloxicam for muscle weakness but noticed severe diarrhea as an adverse reaction for 6 weeks. She has completed an MRI scan at [facility], which is not available for us to review today. Past procedures 06/28/24: Right ischial bursa injection under fluoroscopic guidance: 75% relief. 10/19/23: Peripheral Nerve Stimulator Implant for Middle Cluneal Nerves, Left: Notable initial relief. 08/10/23: Percutaneous trial of peripheral nerve stimulation of Medial Cluneal Nerve, Left: 90% relief for one week. [facility] Medical History (Updated 06/26/24 @ 08:29 by Jama Hull MD) Lumbar facet arthropathy Disorder of sacrum Surgical History (Updated 08/10/23 @ 11:21 by Stacie Duncan RN) H/O breast surgery Previous section Social History Patient Tobacco Use Status: Never used Tobacco Review of Systems Const All systems reviewed & are unremarkable except as noted in HPI and below Physical Exam Vital Signs: Last Vital Signs Pulse 77 08/03/24 10:08 Resp 16 08/03/24 10:08 BP 124/70 08/03/24 10:08 Pulse Ox 98 08/03/24 10:08 Oxygen Delivery Method Room Air 08/03/24 10:08 BMI result Body Mass Index 29.9 General: Appears afebrile. Alert and oriented. Mood and affect appropriate. Follows and participates in conversation appropriately. Respiratory effort is unlabored. Able to transition from sit to stand unassisted. Ambulates with bilaterally normal heel strike and toe off. Results Reviewed Results Reviewed: No imaging is available for review. Assessment & Plan Assessment & Plan (1) Ischial bursitis: Code(s): M70.70 - Other bursitis of hip, unspecified hip Category: Medical (2) Lumbar spinal stenosis: Code(s): M48.061 - Spinal stenosis, lumbar region without neurogenic claudication Category: Medical (3) Cluneal neuropathy: Code(s): G58.8 - Other specified mononeuropathies Category: Medical (4) Sacroiliac joint dysfunction: Code(s): M53.3 - Sacrococcygeal disorders, not elsewhere classified Category: Medical Plan For her leg symptoms, I advised the patient to bring her MRI result to us for review. Once I have reviewed the MRI images and report, we can plan for longer- term relief treatment options. For her ischial bursa, she will let us know when her pain is bothersome to repeat the injection. Her left-sided back pain is under better control since the last reprogramming, and her right sided back pain is manageable at this time.? c Scribed for Dr. Hull by Jasson Wayne, faculty i on call medical assistant, on 08/03/2024. I, Dr. Hull, have personally reviewed and agree with the information entered by the scribe. Coding Level of Care Code Est Pt Level 4 (98056) Diagnoses Ischial bursitis M70.70 Lumbar spinal stenosis M48.061 Cluneal neuropathy G58.8 Sacroiliac joint dysfunction M53.3
[2024-08-03 10:08] VITALS: BP 124/70; PULSE 77; RESP 16; O2SAT 98; BMI 29.9
== END 2024-08-03 11:31 | disposition home or self-care (01) ==
PROVIDERS: PCP Physical Medicine & Rehabilitation; Visit Provider Internal Medicine
DX: M70.70 Other bursitis of hip, unspecified hip (principal); M48.061 Spinal stenosis, lumbar region without neurogenic claudication; G58.8 Other specified mononeuropathies; M53.3 Sacrococcygeal disorders, not elsewhere classified
CPT/HCPCS: 99214

== ENCOUNTER → 2024-08-03 09:55 | Outpatient (BNVA) | payer MEDICARE, SELFPAY | PROVIDERS: PCP Physical Medicine & Rehabilitation; Visit Provider Internal Medicine | DX: M70.70 Other bursitis of hip, unspecified hip (principal); M48.061 Spinal stenosis, lumbar region without neurogenic claudication; M53.3 Sacrococcygeal disorders, not elsewhere classified; G58.8 Other specified mononeuropathies | CPT/HCPCS: 99212 ==

== ENCOUNTER 2024-08-27 10:39 | Outpatient (AMB) | payer MEDICARE, SELFPAY ==
--- NOTE | 2024-08-27 10:46 | A.OFFVIS_ITS ---
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 She was previously seen by Dr. Hull. She reports 1/10 pain in her lower back but reports increased right hip and right anterior lower extremity pain with prolonged standing and walking. Patient reports similar symptoms on her left side at times. She reports partial pain relief with Curonix PNS trial for cluneal neuropathy. Denies any fever or chills, balance issues, weakness, upper or lower extremity paresthesia, distal extremity swelling or pain, bladder or bowel dysfunction, or saddle anesthesia. PRIOR 08/03/24 Dr. Hull: s/p right ischial bursa inj: Details: 78-year-old female who presents today to the office for a status post right ischial bursa injection. The patient reports initial 90% relief, which came down to 75% relief following the procedure. She has significant pain relief from the injection. She is able to stand from the chairs, which she was unable to do prior to the injection. She had device reprogramming by specialty sales representative after her May 2024 visit. She has noticed very mild weakness and pain sensation in the middle of the waist region. She has tried meloxicam for muscle weakness but noticed severe diarrhea as an adverse reaction for 6 weeks. She has completed an MRI scan at [facility], which is not available for us to review today. Past procedures 06/28/24: Right ischial bursa injection under fluoroscopic guidance: 75% relief. 10/19/23: Peripheral Nerve Stimulator Implant for Middle Cluneal Nerves, Left: Notable initial relief. 08/10/23: Percutaneous trial of peripheral nerve stimulation of Medial Cluneal Nerve, Left: 90% relief for one week. [facility] Medical History (Updated 08/27/24 @ 11:24 by ANDRES Davis) Sacroiliac joint dysfunction Ischial bursitis Lumbar spinal stenosis Cluneal neuropathy Lumbar facet arthropathy Disorder of sacrum Surgical History H/O breast surgery Previous section Social History Patient Tobacco Use Status: Never used Tobacco Review of Systems Const All systems reviewed & are unremarkable except as noted in HPI and below Physical Exam General: Appears afebrile. Alert and oriented. Mood and affect appropriate. Follows and participates in conversation appropriately. Respiratory effort is unlabored. Able to transition from sit to stand unassisted. Ambulates with bilaterally normal heel strike and toe off. Back/Spine/Pelvis Other: Limited lumbar ROM. Positive facet loading. Patient is wearing Ceregeneonix PNS device brace. Cervical Spine: cervical ROM normal and No Cervical spine tenderness Thoracic/Lumbar Spine: thoracic and lumbar spine normal to inspection, Thoracic/lumbar spine scar(s), Lasegue's sign positive on the right and localized, pain with thoraco-lumbar ROM, paraspinal muscle tenderness, thoraco- lumbar ROM limited, No thoracic spinal tenderness and lumbar spinal tenderness at L3, at L4 and at L5 Pelvis: buttock tenderness on the right Sacroiliac joints: bilaterally tender to palpation Results Reviewed Results Reviewed: Assessment & Plan Assessment & Plan (1) Ischial bursitis: Code(s): M70.70 - Other bursitis of hip, unspecified hip Category: Medical (2) Lumbar spinal stenosis: Code(s): M48.061 - Spinal stenosis, lumbar region without neurogenic claudication Category: Medical (3) Cluneal neuropathy: Code(s): G58.8 - Other specified mononeuropathies Category: Medical (4) Sacroiliac joint dysfunction: Code(s): M53.3 - Sacrococcygeal disorders, not elsewhere classified Category: Medical (5) Lumbar degenerative disc disease: Code(s): M51.369 - Other intervertebral disc degeneration, lumbar region without mention of lumbar back pain or lower extremity pain Category: Medical Plan Schedule Right L2-L3 Interlaminar Parasagittal SHAWN with local and fluoroscopy. Expectations, risks and benefits were reviewed. Patient is aware she will be contacted to schedule this procedure. We also discussed spinal cord stimulator trial and implant for low back and leg pain for longer-term relief treatment options after we reviewed recent lumbar spine MRI report. Informational pamphlets were provided to patient. All questions were answered and the patient is in agreement of plan. Follow-up after injections and sooner as needed. Coding Level of Care Code Est Pt Level 4 (74807) Complex EM visit Add On G2211 Diagnoses Ischial bursitis M70.70 Lumbar spinal stenosis M48.061 Cluneal neuropathy G58.8 Sacroiliac joint dysfunction M53.3 Lumbar degenerative disc disease M51.369
[2024-08-27 10:55] VITALS: BP 149/72; PULSE 81; O2SAT 98; BMI 29.5
== END 2024-08-27 11:16 | disposition home or self-care (01) ==
PROVIDERS: PCP Physical Medicine & Rehabilitation; Visit Provider Nurse Practitioner Family
DX: M70.70 Other bursitis of hip, unspecified hip (principal); M48.061 Spinal stenosis, lumbar region without neurogenic claudication; G58.8 Other specified mononeuropathies; M53.3 Sacrococcygeal disorders, not elsewhere classified; M51.369 Other intervertebral disc degeneration, lumbar region without mention of lumbar back pain or lower extremity pain
CPT/HCPCS: 99214; G2211

== ENCOUNTER → 2024-08-27 10:39 | Outpatient (BNVA) | payer MEDICARE, SELFPAY | PROVIDERS: PCP Physical Medicine & Rehabilitation; Visit Provider Internal Medicine | DX: M53.3 Sacrococcygeal disorders, not elsewhere classified (principal); M51.369 Other intervertebral disc degeneration, lumbar region without mention of lumbar back pain or lower extremity pain; M48.061 Spinal stenosis, lumbar region without neurogenic claudication; M70.70 Other bursitis of hip, unspecified hip; G58.8 Other specified mononeuropathies | CPT/HCPCS: 99212 ==

== ENCOUNTER 2024-10-04 06:25 | Outpatient (REF) | payer MEDICARE, SELFPAY ==
--- NOTE | ~2024-10-04 | FL_ITS ---
EXAMINATION: FL GUIDANCE ONLY HISTORY: M48.061 - Spinal stenosis, lumbar region without neurogenic claudication COMPARISON: None available. TECHNIQUE: Fluoroscopy time: 0.1 minutes. Cumulative Dose: 2.34 mGy. DAP: 0.0187 mGym2 Images: 2. FINDINGS: Fluoroscopic spot films of the lumbar spine demonstrate a needle and contrast material in the region of the right facet joint. FL/FL guidance in treatment room IMPRESSION: Fluoroscopy during procedure. Please see procedure report for additional information. Electronically signed by: Esvin Joiner MD 10/04/2024 12:09 PM [facility]
== END 2024-10-04 06:26 | disposition home or self-care (01) ==
LOC: CF 06:25
PROVIDERS: Visit Provider Internal Medicine
DX: M47.26 Other spondylosis with radiculopathy, lumbar region (principal)
CPT/HCPCS: 62323; J1100; J2003; J3300; J3301; Q9967

== ENCOUNTER → 2024-10-04 09:34 | Outpatient (AMB) | payer MEDICARE, SELFPAY ==
--- NOTE | 2024-10-04 10:11 | A.OFFVIS_ITS ---
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: No Allergies codeine Adverse Reaction (Intermediate, Verified 10/04/24 10:11) Nausea and Vomiting Medication List - Last Reconciled 10/04/24 by Va Schrader, VINYL CUTTER acetaminophen 1,000 mg PO Q6H PRN alpha lipoic acid 600 mg PO BID antiarthritic combination no.2 (glucosamine-chondroitin) 900 mg PO DAILY atorvastatin 10 mg PO BEDTIME biotin 5,000 mcg PO DAILY butterbur root extract (Petadolex) 75 mg PO BID chlorthalidone 25 mg PO DAILY cholecalciferol (vitamin D3) 25 mcg PO DAILY gabapentin 100 mg PO TID levothyroxine 50 mcg PO DAILY multivitamin 1 tab PO DAILY pantoprazole 40 mg PO BID valsartan 80 mg PO BID verapamil ER 240 mg PO DAILY HPI HPI Right L2-L3 parasagittal interlaminar SHAWN: Details: Patient presents for scheduled procedure. Denies any recent cough, cold, infection, fever or other significant changes in medical history since last office visit. [facility] Medical History (Updated 10/04/24 @ 10:30 by Jama Hull MD) Sacroiliac joint dysfunction Ischial bursitis Lumbar spinal stenosis Cluneal neuropathy Lumbar facet arthropathy Disorder of sacrum Surgical History H/O breast surgery Previous section Social History Patient Tobacco Use Status: Never used Tobacco Physical Exam Vital Signs: Last Vital Signs Pulse 89 10/04/24 10:11 BP 135/65 10/04/24 10:11 Pulse Ox 96 10/04/24 10:11 Oxygen Delivery Method Room Air 10/04/24 10:11 BMI result Body Mass Index 29.5 Office Procedures AMB Joint Injection/Aspiration Joint Injection/Aspiration Details: Interlaminar epidural steroid injection, L2/3, Right parasaggital After obtaining written consent, pre-procedure blood pressure and heart rate were stable and recorded in the nursing record. The patient was placed in the prone position. The lumbar area was widely prepped with chloraprep and draped in sterile fashion. Fluoroscopic guidance was used to identify the desired interlaminar space and for needle placement. Subcutaneous 0.5% lidocaine was used to anesthetize the skin overlying the target. A 20-gauge Lloyd needle was advanced to the epidural space using loss of resistance to contrast technique under fluoroscopic AP and contralateral oblique views. There was no evidence of heme or CSF and no paresthesias were elicited with needle placement. Confirmation of epidural needle placement was performed with 1cc of omnipaque 180. Next 3 ml 0.5% lidocaine mixed with 80 mg triamcinilone was administered epidurally with no pain elicited on injection. The needle tract tubing was then cleared with 1 ml of 0.5% lidocaine. The needle was removed, skin cleansed and a sterile bandage was applied. The patient tolerated the procedure well and no complications were encountered. Following the procedure the patient's vital signs were stable. The patient was discharged home in good condition with post-procedural instructions. Time Out: Immediately prior to the procedure, the following was verbally confirmed that there is a signed consent form and that the correct patient, planned procedure, site and side are consistent with documentation and that necessary equipment and/or blood products are available prior to the start of the case. Complications: none EBL: <2 cc Coding 16948 - Caudal/Lumbar Epidural/Interlaminar with fluoroscopy Procedure code (CPT) selection complete Office Meds lidocaine (PF) 10 mg/mL (1 %) injection solution Performing Provider: Jama Hull MD Performing Location: [facility] Administered by: Jama Hull MD on 10/04/24 10:30 Dose Route Admin Location Dispensed Lot Number Expiration Date [facility] Longshore Equipment Operator 10 mg Infiltration 5 mL Kenalog 40 mg/mL suspension for injection Performing Provider: Jama Hull MD Performing Location: [facility] Administered by: Jama Hull MD on 10/04/24 10:30 Dose Route Admin Location Dispensed Lot Number Expiration Date [facility] Longshore Equipment Operator 80 mg Infiltration 2 mL Assessment & Plan Assessment & Plan (1) Lumbar radicular pain: Code(s): M54.16 - Radiculopathy, lumbar region Category: Medical Plan Patient is status post right parasagittal interlaminar L2-3 SHAWN. Patient tolerated procedure well and was discharged home in stable condition with discharge instructions. All questions were answered. We will follow-up via telephone or in clinic to assess response to therapy. A follow-up appointment was made during today's visit. Orders: Orders AMB Joint Injection/Aspiration Today Jama Hull MD M54.16 - Radiculopathy, lumbar region FL guidance in treatment room Today Brenda Payne APRN, LUMBER MOVER M48.061 - Spinal stenosis, lumbar region without neurogenic claudication Medications: New Kenalog (triamcinolone acetonide) 80 mg (2 mL) Infiltration ONCE 2 mL 0RF NS Jama Hull MD M54.16 - Radiculopathy, lumbar region lidocaine (PF) 10 mg Infiltration ONCE 2 mL 0RF Jama Hull MD M54.16 - Radiculopathy, lumbar region Coding Level of Care Code Procedure Only Diagnoses Lumbar radicular pain M54.16 CPT Codes Coding - Joint 11: 76359 - Caudal/Lumbar Epidural/Interlaminar with fluoroscopy ([id number])
== END | disposition home or self-care (01) ==
PROVIDERS: PCP Physical Medicine & Rehabilitation; Visit Provider Internal Medicine
DX: M54.16 Radiculopathy, lumbar region (principal)
CPT/HCPCS: 62323

== ENCOUNTER 2024-11-02 09:46 | Outpatient (AMB) | payer MEDICARE, SELFPAY ==
[2024-11-02 09:49] VITALS: BP 168/79; PULSE 97; RESP 16; O2SAT 98; BMI 30.6
--- NOTE | 2024-11-02 09:49 | MHC.OFFVIS ---
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 She recently experienced an increase in painful symptoms which necessitated a visit to the emergency department on October 27, three weeks after a prior lumbar injection. During the exacerbation, ibuprofen was administered. The patient's typical pain management includes acetaminophen, with noted partial relief. Physical activity, specifically chopping ice, may have been a trigger for a muscle spasm episode, but this heightened pain did not persist. Muscle relaxants, previously prescribed, have been used occasionally to aid sleep but have residual daytime sedative effects. Pain Description - Onset/Timing: Acute exacerbation on October 27. - Quality/Character: Distinct from usual pain, more acute and likely a muscle spasm. - Primary Location: Back pain localized without radiation to lower extremities. - Exacerbating Factors: Physical activity such as chopping ice. - Relieving Factors: Acetaminophen provides some relief. - Interference: Limits heavy-duty activities, affects activities like seat weaving. Physical Exam - Appears afebrile. - Alert and oriented. - Mood and affect appropriate. - Follows and participates in conversation appropriately. - Respiratory effort is unlabored. - Able to transition from sit to stand unassisted. - Ambulates with bilaterally normal heel strike and toe off. - Able to stand and walk on toes and heels. - Axial LBP on right side Pain Management - Affect: The pain impacts daily activities but has not led to recurrent emergency room visits. - Analgesia: Currently using acetaminophen; previously used ibuprofen during the ER visit and cyclobenzaprine occasionally. - Adverse Effects: Cyclobenzaprine causes daytime sedation. - Activities of Daily Living: The pain limits heavy activities like seat weaving. - Aberrant Drug Related Behaviors: None reported. [facility] Medical History (Updated 11/05/24 @ 12:22 by Jama Hull MD) Sacroiliac joint dysfunction Ischial bursitis Lumbar spinal stenosis Cluneal neuropathy Lumbar facet arthropathy Disorder of sacrum Surgical History H/O breast surgery Previous section Social History Patient Tobacco Use Status: Never used Tobacco Physical Exam Vital Signs: Last Vital Signs Pulse 97 11/02/24 09:49 Resp 16 11/02/24 09:49 BP 168/79 H 11/02/24 09:49 Pulse Ox 98 11/02/24 09:49 Oxygen Delivery Method Room Air 11/02/24 09:49 BMI result Body Mass Index 30.6 Assessment & Plan Assessment & Plan (1) Lumbar spondylosis: Code(s): M47.816 - Spondylosis without myelopathy or radiculopathy, lumbar region Category: Medical (2) Dysfunction of the multifidus muscle of lumbar region: Code(s): M62.85 - Dysfunction of the multifidus muscles, lumbar region Category: Medical Plan Plan For her exacerbated chronic low back pain, I suggest a temporary peripheral nerve stimulation device trial for sustained pain relief. It involves a simple insertion procedure with no recovery time. Pain relief could last 6 to 10 months. The patient will decide timing, and we will secure insurance approval and coordinate the procedure, typically done on . Activity modification is advised during the two-month period of device use, with plans to review dressing care. Cyclobenzaprine remains an option for occasional nighttime use considering sedative effects. Patient was informed and verbally consented to the use of an ambient scribe for clinic note documentation during this visit. Discussion Notes I discussed with the patient the details of a temporary peripheral nerve stimulation procedure as an option for her chronic low back pain, emphasizing its simplicity, the insertion procedure's brevity, and an expected extended period of pain relief post-removal. I clarified that unlike permanent implants, this temporary method does not require long-term recovery. I reviewed the need for minimal activity modification during the device's in-use period and the importance of regular dressing changes. The patient was informed of a 70% response rate, acknowledging there's a 30% chance of no effect. We discussed ensuring insurance authorization and will wait for her decision on proceeding. Cyclobenzaprine was also addressed as a potential aid for her sleep concerns. Patient Instructions - Consider the temporary nerve stimulation device and inform us when ready to schedule the procedure. - Limit heavy physical activities during the two months of having the stimulation device. - Arrange friend or clinic visits for dressing changes once or twice weekly. - Monitor cyclobenzaprine use, and be mindful of its sedative effects. - Report any new or worsening symptoms or difficulties promptly. Coding Level of Care Code Est Pt Level 4 (87782) Diagnoses Lumbar spondylosis M47.816 Dysfunction of the multifidus muscle of lumbar region M62.85
--- OUTSIDE RECORDS SUMMARY | 2024-11-02 10:41 | XMS_ITS ---
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 Generated for Printi jo ann/Philomena/eTransmitting on:?2024 10:41 AM EST
--- OUTSIDE RECORDS SUMMARY | 2024-11-02 10:41 | XMS_ITS | Patient Health Record ---
Author Organization [facility] Address [address] [place] [address] Care Team Providers Care Customer Engagement Specialist Name Role Phone Gloria GRECO, Cuca Primary Care Provider Unavail able Gabbie Burton Unavailable [phone] Reason For Referral No Information Encounters Encounter Location Date Provider Diagnosis [facility] [address] [place] [address] 09/24/2024 Gabbie Burton Plan Of Treatment Next Appt Details Provider Name:Gabbie gallardo, 12/10/2024 02:00:00 PM, [address] [place], [address], Insurance Providers Payer Name Payer Address Payer Phone Subscriber Number Group Number Insured Name Patient Relationship to Insured Coverage Start Date Coverage End Date [employer] Preferred [address] [id number] Guerrier [id number] Steph Boudreaux Self - patient is the insured
== END 2024-11-02 10:10 | disposition home or self-care (01) ==
PROVIDERS: PCP Internal Medicine; Visit Provider Internal Medicine
DX: M47.816 Spondylosis without myelopathy or radiculopathy, lumbar region (principal); M62.85 Dysfunction of the multifidus muscles, lumbar region
CPT/HCPCS: 99214

== ENCOUNTER → 2024-11-02 09:46 | Outpatient (BNVA) | payer MEDICARE, SELFPAY | PROVIDERS: PCP Internal Medicine; Visit Provider Internal Medicine | DX: M47.816 Spondylosis without myelopathy or radiculopathy, lumbar region (principal); M62.85 Dysfunction of the multifidus muscles, lumbar region; G89.29 Other chronic pain | CPT/HCPCS: 99212 ==

== ENCOUNTER 2024-12-20 06:12 | Outpatient (REF) | payer MEDICARE, SELFPAY ==
--- NOTE | ~2024-12-20 | FL_ITS ---
FL GUIDANCE ONLY HISTORY: M47.816 - Spondylosis without myelopathy or radiculopathy, lumbar region COMPARISON: None available. TECHNIQUE: Fluoroscopy time: 0.1 minutes. Cumulative Dose: 1.79 mGy. DAP: 0.0140 mGym2 Images: 2. FINDINGS: Images demonstrate a needle in the region of the left L3-4 facet joint. FL/FL guidance in treatment room IMPRESSION: Fluoroscopy during procedure. Please see procedure report for additional information. Electronically signed by: Esvin Joiner MD 12/21/2024 09:37 AM EDT
--- OUTSIDE RECORDS SUMMARY | 2024-12-20 06:15 | XMS_ITS ---
[facility] Address [address] [place] [address] Care Team Providers Care Landing Signal Officer Name Role Phone Gloria GRECO, Cuca Primary Care Provider Unavail able Gabbie Burton Unavailable [phone] Allergies Allergen (clinical drug ingredient) Drug/Non Drug Allergy documented on EMR Reaction Allergy Type Onset Date Status codeine Codeine sensitive , Vomiting Drug Allergy Active REASON FOR VISIT Ingrown Nail, Fungal Nails Medications Medication SIG (Take, Route, Frequency, Duration) Notes Start Date End Date Status Gabapentin 100 MG Oral for 20 Days Active Acetaminophen Active Alpha Lipoic Acid 200 MG 1 capsule Orall y Once a day Active Atorvastatin Calcium 10 MG 1 tablet Oral ly Once a day Active Biotene Dry Mouth Ac tive Glucosamine Chond Cmp Advanced Active Petadolex Active Multivitamin Active Chlorthalidone 25 MG 1 tablet in the mor elba with food Orally 11/08/2024 Active Vitamin D3 Active Pantoprazole Sodium 40 MG TAKE 1 TABLET BY MOUTH TWICE A DAY FOR 90 DAYS Oral for 90 Days Active Valsartan 80 MG TAKE 2 TABLETS BY MO UTH EVERY DAY Oral for 90 Days Active Verapamil HCl ER 240 MG TAKE 1 TABLET BY MOUTH EVERY DAY Oral for 90 Days Active Levothyroxine Sodium 50 MCG TAKE 1 TABLE T BY MOUTH EVERY MORNING. TAKE ON AN EMPTY STOMACH WITH A FULL GLASS OF WATER. Oral for 90 Days Active Social History Tobacco Use: Social History Observation Description Date Details (start date - stop date) Never Smoker NA - NA Tobacco use other than smoking: Question Answer Notes Are you an other tobacco user? No Tobacco Control (Standard) Question Answer Notes Tobacco use: Nonsmoker Additional Findings: Tobacco non-user Current no nsmoker AUDIT-C (Standard) Question Answer Notes Did you have a drink containing alcohol in the p ast year? No Points 0 Interpretation Negative Vital Signs Height 5ft 4inch in 12/10/2024 Weight 172.4 lbs 12/10/2024 BMI 29.59 kg/m2 12/10/2024 Blood pressure systolic 120 mm Hg 12/11/19 25 Blood pressure diastolic 80 mm Hg 025 Procedures Procedure Date Ordered Date Performed Result Body Sit e 98483-Ilbdtvuh Plate 12/10/2024 N/A Encounters Encounter Location Date Provider Diagnosis [facility] [place] [address] [place] [address] 12/10/2024 Gabbie Burton Ingrown nail L60.0 ; Onychomycosis B35.1 ; Pain in right toe(s) M79.674 and Pain in left toe(s) M79.675 Assessments Encounter Date Diagnosis (ICD Code) Assessment Notes Treatment Notes Treatment Clinical Notes Section Notes 12/10/2024 Ingrown nail (ICD-10 - L60.0) 12/10/2024 Onychomycosis (ICD-10 - B35.1) 12/10/2024 Pain in right toe(s) (ICD-10 - M79.674) 12/10/2024 Pain in left toe(s) (ICD-10 - M79.675) Plan Of Treatment Pending Test Test Name Order Date 14495-Rmylfhbt Plate 12/10/2024 Next Appt Details Follow Up: 2-3 Months, Reaso n: Provider Name:Gabbie gallardo, 01/10/2025 10:15:00 AM, [address] [place] [address], [phone], Procedure Notes * Category Sub-Category Detail Notes Nail Avulsion Procedure A fine sterile e levator was placed between the eponychium, nail fold, and nail plate to separate the structures. A sterile nail splitter, and/or sterile 316 blade, was then used to longitudinally section the nail along its entire length through the eponychium to the area under the nail fold. The offending portion of nail was from the nail bed with a rolling action and then removed with a hemostat. No underlying bone was identified. There was minimal bleeding as hemostasis was achieved through the temporary use of either a digital tourniquet or the aforementioned local with epinephrine. A bacitracin sterile dressing was applied. Local wound aftercare instructions were discussed and dispensed. The patient was informed of both conservative and future surgical procedures to prevent recurrence. Tylenol or Motrin was recommended for pain or discomfort - 89203 Anesthesia 3cc of 1 percent Lid ocaine Plain local anesthesic utilizing aseptic technique Location Medial nail border, TA Progress Notes * Steph PRICE BDOB:02/1946 (79 yo F)Acc No.[id number]:12/10/2024 Progress Notes Patient:?Steph PRICE B Provider:?Gabbie Burton DPM :1945???Age:79 Y???Sex:Female D ate:12/10/2024 Address:[address] [place], [place] [id number] Pcp:Cuca Castro MD Subjective: * Chief Complaints: * ???Ingrown NailFungal Nails * HPI: ???Painful Nails:?Nature:?aching, tender, discolored, thick.?Location:?All toes.?Duration:?several months.?Course:?worse.?Aggravated by:?shoegear causing difficulty standing/walking.?Treatments:?none.? * ROS:?General/Constitutional:?Nausea?denies.?Vomiting?denies.?Hunger Thirst?denies.?Loss appetite?denies.?Chills?denies.?Fatigue?denies.?Fever?denies.?Night Sweats?denies.?Unexplained weight loss?denies.?Unexplained weight gain?denies.?HEENTM:?Dentures?denies.?Dizziness?denies.?Glasses/contacts?denies.?Retinopathy?de nies.?Blurred/double vision?denies.?TMJ?denies.?Discharge/drainage?denies.?Implants?denies.?Sore throat?denies.?Dental implants?denies.?Hard of hearing ?denies.?Difficulty chewing/swallowing/speaking?denies.?Nose bleeds?denies.?Sore mouth?denies.?Respiratory:?On Oxygen?denies.?Pneumonia/pleurisy?denies.?Bronchitis?denies.?Emphysema?denies.?C oughing?denies.?Cough blood?denies.?Shortness of breath?denies.?Wheezing?denies.?Cardiovascular:?Pacemaker?denies.?MVP?denies.?WPW?denies.?CHF?denies.?Heart attack?denies.?Septal defect?denies.?Rapid beat?denies.?Chest pain ?denies.?Atrial Fib.?denies.?Murmur/Palpitations?denies.?Gastrointestinal:?Hemorrhoids?denies.?Stomach/Abdominal pain?denies.?Dark blood stool?denies.?Irritable bowel ?denies.?Constipation?denies.?Diarrhea?denies.?Hematology:?Swelling?denies.?Clots?denies.?Varicose Veins?denies.?Bruising?denies.?Bleeding problem?denies.?Genitourinary:?Blood urine?denies.?Frequent/Painfu/urination/bladder control?denies.?Kidney stones?denies.?Infection (UTI)?denies.?Nephropathy?denies.?sex trans dis (STD)?denies.?Prostate?denies.?Musculoskeletal:?Hammertoes?denies.?Bunions?denies.?Back Pain?admits.?Muscle Cramps/ Resting?denies.?Muscle cramps / walking?denies.?Generalized aches and pains?denies.?Weakness?denies.?Integ.:?Amos?denies.?Scars?denies.?Corns/calluses?denies.?Ingrown nails?admits.?Painful nails?denies.?Open Sores?denies.?Rashes?denies.?Neurologic:?Difficulty sleeping?denies.?Brain disorder?denies.?Numbness?denies.?Balance trouble?denies.?Confusion?denies.?Fainting/blackouts?denies.?Tingling?denies.?Tr emors?denies.? * Medical History:? * Surgical History:?Peripheral Nerve Stimulator Implant 10/19/2023 * Hospitalization/Major Diagno stic Procedure:?Denies Past Hospitalization * Family History:?Mother: dece ased, Foot problems, diagnosed with Unspecified essential hypertension, Unspecified cerebral artery occlusion with cerebral infarction, Family history of arthritis.?Father: , diagnosed with Diabetic - NIDDM, Unspecified essential hypertension.? * Social History:?Tobacco Use:?Tobacco use other than smoking?Are you an other tobacco user??No ?Tobacco Control (Standard)?Tobacco use:?Nonsmoker ?Additional Findings: Tobacco non-user?Current nonsmoker ???Drugs/Alcohol:?Drugs?Have you used drugs other than those for medical reasons in the past 12 months??No ???Miscellaneous:?Caffeine: yes, frequency:. ?Children: yes, 2. ?Marital status: . 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 ???Drug/Alcohol:?AUDIT-C (Standard)?Did you have a drink containing alcohol in the past year??No ?Points?0 ?Interpretation?Negative * Medications:?TakingMultivita min Petadolex Glucosamine Chond Cmp Advanced Vitamin D3 Chlorthalidone 25 MG Tablet 1 tablet in the morning with food Orally Biotene Dry Mouth Atorvastatin Calcium 10 MG Tablet 1 tablet Orally Once a day Alpha Lipoic Acid 200 MG Capsule 1 capsule Orally Once a day Acetaminophen Gabapentin 100 MG Capsule Oral Levothyroxine Sodium 50 MCG Tablet TAKE 1 TABLET BY MOUTH EVERY MORNING. TAKE ON AN EMPTY STOMACH WITH A FULL GLASS OF WATER. Oral Verapamil HCl ER 240 MG Tablet Extended Release TAKE 1 TABLET BY MOUTH EVERY DAY Oral Valsartan 80 MG Tablet TAKE 2 TABLETS BY MOUTH EVERY DAY Oral Pantoprazole Sodium 40 MG Tablet Delayed Release TAKE 1 TABLET BY MOUTH TWICE A DAY FOR 90 DAYS Oral Medication List reviewed and reconciled with the patientTaking Multivitamin Taking Petadolex Taking Glucosamine Chond Cmp Advanced Taking Vitamin D3 Taking Chlorthalidone 25 MG Tablet 1 tablet in the morning with food Orally Taking Biotene Dry Mouth Taking Atorvastatin Calcium 10 MG Tablet 1 tablet Orally Once a day Taking Alpha Lipoic Acid 200 MG Capsule 1 capsule Orally Once a day Taking Acetaminophen Taking Gabapentin 100 MG Capsule Oral Taking Levothyroxine Sodium 50 MCG Tablet TAKE 1 TABLET BY MOUTH EVERY MORNING. TAKE ON AN EMPTY STOMACH WITH A FULL GLASS OF WATER. Oral Taking Verapamil HCl ER 240 MG Tablet Extended Release TAKE 1 TABLET BY MOUTH EVERY DAY Oral Taking Valsartan 80 MG Tablet TAKE 2 TABLETS BY MOUTH EVERY DAY Oral Taking Pantoprazole Sodium 40 MG Tablet Delayed Release TAKE 1 TABLET BY MOUTH TWICE A DAY FOR 90 DAYS Oral Medication List reviewed and reconciled with the patient * Allergies:?Codeine: sensitiv e , Vomitingyes[Allergies Verified] Objective: * Vitals:?Ht:5ft 4inch, Wt:172 .4, BMI: 29.59, Shoe size:9, BP:120/80mm Hg, Ht-cm: 162.56 cm, Wt-k.2 kg. * Examination: ???Ingrown Nail: ?INSPECTION:?Reveals nail incurvation, pain on palpation, groove hypertrophy, Medial nail border, TA.?Nails: ?NAILS are:?Elongated, overgrown, dystrophic, lytic, greater than 3mm thick, discolored and friable with crumbly malodorous subungual debris, with pain on palpation, TA, T1, T2, T3, T4, T5, T6, T7, T8, T9.?General Examination: ?GENERAL APPEARANCE:?Reveals a pleasant, alert, well-nourished, well- developed, well hydrated individual, who demonstrates proper attention to hygiene/body habitus, and is in no acute distress, Pt serves as own?historian for office visit today.?ORIENTED:?person, place, and time.?Neurological: ?SENSORY:?Neurological exam reveals intact sensorium, pain sensation normal, vibration sensation intact, pinprick sensation is normal in the lower extremities, Pt denies, anesthesia, burning, paresthesia, tingling, B/L.?DEEP TENDON REFLEXES:?Achilles, 2/4, B/L.?Vascular: ?DP PULSES (B):?3/4, B/L.?PT PULSES (B):?3/4, B/L.?CAPILLARY FILL TIME:?immediate, all digits, B/L.?TROPHIC CONDITION-TEXTURE/ELASTICITY/TURGOR/HAIR GROWTH (B):?normal, B/L.?TEMPERTURE GRADIENT (C):?warm to cool, proximal to distal, B/L.?PIGMENTATION:?normal, B/L.?EDEMA (C):?absent, B/L.?Dermatologic: ?SKIN FINDINGS:?Skin exam reveals normal texture, elasticity, and turgor. There are no masses. The interspaces are clear.?Orthopedic: ?MUSCLE STRENGTH:?5/5 all groups in a symmetrical fashion , B/L.? Assessment: * Assessment: 1.?Ingrown nail - L60.0???Sp ecify :Medial nail border, TA???2.?Onychomycosis - B35.1 (Primary)???Specify :Acute problem, Uncomplicated (3) Dx New problem, Prognosis Uncertain (4)???3.?Pain in right toe(s) - M79.674???4.?Pain in left toe(s) - M79.675??? Plan: * Treatment: * Procedures:?Nail Avulsion:?Location?Medial nail border, TA.?Anesthesia?3cc of 1 percent Lidocaine Plain local anesthesic utilizing aseptic technique.?Procedure?A fine sterile elevator was placed between the eponychium, nail fold, and nail plate to separate the structures. A sterile nail splitter, and/or sterile 316 blade, was then used to longitudinally section the nail along its entire length through the eponychium to the area under the nail fold. The offending portion of nail was from the nail bed with a rolling action and then removed with a hemostat. No underlying bone was identified. There was minimal bleeding as hemostasis was achieved through the temporary use of either a digital tourniquet or the aforementioned local with epinephrine. A bacitracin sterile dressing was applied. Local wound aftercare instructions were discussed and dispensed. The patient was informed of both conservative and future surgical procedures to prevent recurrence. Tylenol or Motrin was recommended for pain or discomfort - 44847.? * Procedure Codes:?73893 Avuls ion Plate, Modifiers: XS * Preventive Medicine:? ??Counseling:?Discussion:?-03: Office or other outpatient visit for the evaluation and management of a new patient, which required a medically appropriate history and/or examination and LOW level of DECISION MAKING for: 1 STABLE ACUTE UNCOMPLICATED PROBLEM, 2 OR MORE MINOR PROBLEMS, OR 1 STABLE CHRONIC PROBLEM, THAT POSE(S) A LOW RISK FOR MORBIDITY/MORTALITY. The visit on the day of the encounter encompassed interpreting the data and educating the patient as to the nature of their condition, treatment options available according to their individual PMH, meds, allergies, and overall health/living conditions, as well as any potential risks or complications that may occur from a failure to adhere to, and participate in, the recommended course of therapy. The discussion included a complete verbal, and/or written explanation of the examination results, any x-rays taken, the proposed diagnosis, and outline of the treatment plan. A schedule for future care needs was also explained. The patient verbalized an understanding of the instructions at this time and agreed to be an active participant in their treatment. If the patient should think of any questions or concerns after the visit, I have encouraged the patient to call the office.?Fungal Nail Counseling:?The patient was counseled on the diagnosis, potential etiologies (including, but not limited to, environmental factors, genetic, immune deficiency), and the multiple treatment options for Onychomycosis. We discussed the risks and benefits of each option from performing no treatment, to ultraviolet light shoe treatment, to laser nail treatment, to applying topical antifungals, to taking oral antifungal medication, to surgical removal of the involved nail(s) with or without performing a matricectomy, or any combination thereof. We discussed the advantages and disadvantages of each of possible treatment and importance for adherence to all the recommended therapies for optimum success. This includes the necessity for weekly emery board self nail home debridements, and control the nail and skin environment as much as possible by only using a fresh, dry pair of shoes/socks each day, as well as keeping the skin as dry as possible through the use of sprays/powders if necessary. The patient was instructed to discard the emery board after use to prevent reinfection of the involved nail(s). We discussed the mycological and visual clinical effectiveness of topical vs oral antifungal treatments as well as each ones potential side effects and/or any patient- specific medication interactions. We discussed the reasons behind the important requirement of regular liver function testing with oral antifungal therapy for safety. Patient questions regarding use, dosage, successful outcomes, blood tests, and possible pharmaceutical interactions were reviewed and the patient verbalized that all answers were clearly understood, Performance of this nail treatment by a nonprofessional would put this patients foot and overall health at risk. Therefore, debridement to affected nail(s), as described in exam, was performed exclusively by the physician of record to reduce/remove overall nail length, girth, thickness, subungual debris, and necrotic tissue, by manual and/or electrical means through the use of a nail nipper and/or dremel-type tile grinder, to a more viable healthy nail plate or bed tissue. Silver nitrate used for any petechial bleeding as necessary.? ??Screening/Special Tests:?Fall Risk?Screening:?No falls in the past year ?FALLS: Screening for Future Fall Risk?Have you had any falls with injury in the past year??No * Follow Up:?2-3 Months * Images: * Sign off status: Completed true * Provider:?Gabbie Burton DPM Date:?0 12/10/2024 Generated for Shaun cherry/Philomena/eTransmitting on:?12/20/2024 06:15 AM EDT History and Physical Notes * HPI (History of Present Illness) Category Sub-Category Detail Notes Category Not es Painful Nails Aggravated by: shoegear causing difficulty standing/walking Course: worse Duration: several months Location: All toes Nature: aching, tender, disc olored, thick Treatments: none Examination Category Sub-Category Detail Notes Category Not es Ingrown Nail INSPECTION: Reveals nail inc urvation, pain on palpation, groove hypertrophy, Medial nail border, TA Neurological SENSORY: Neurological exa m reveals intact sensorium, pain sensation normal, vibration sensation intact, pinprick sensation is normal in the lower extremities, Pt denies, anesthesia, burning, paresthesia, tingling, B/L DEEP TENDON REFLEXES: Achilles, 2/4, B/L Dermatologic SKIN FINDINGS: Skin exam reveal s normal texture, elasticity, and turgor. There are no masses. The interspaces are clear Orthopedic MUSCLE STRENGTH: 5/5 all groups in a symm etrical fashion , B/L General Examination GENERAL APPEARANCE: Reveals a pleasant, alert, well- nourished, well-developed, well hydrated individual, who demonstrates proper attention to hygiene/body habitus, and is in no acute distress, Pt serves as own historian for office visit today ORIENTED: person, place, and t lucy Vascular DP PULSES (B): 3/4, B/L PT PULSES (B): 3/4, B/L CAPILLARY FILL TIME: immediate, all digi ts, B/L TEMPERTURE GRADIENT (C): warm to cool, p roximal to distal, B/L TROPHIC CONDITION-TEXTURE/ELASTICITY/TURGOR/HAIR GROWTH (B): normal, B/L EDEMA (C): absent, B/L PIGMENTATION: normal, B/L Nails NAILS are: Elongated, overg rown, dystrophic, lytic, greater than 3mm thick, discolored and friable with crumbly malodorous subungual debris, with pain on palpation, TA, T1, T2, T3, T4, T5, T6, T7, T8, T9
--- OUTSIDE RECORDS SUMMARY | 2024-12-20 06:15 | XMS_ITS ---
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 Generated for Printi ng/Faweslyg/eTransmitting on:?12/20/2024 06:15 AM EDT
== END 2024-12-20 06:13 | disposition home or self-care (01) ==
LOC: CF 06:12
PROVIDERS: Visit Provider Internal Medicine
DX: M47.816 Spondylosis without myelopathy or radiculopathy, lumbar region (principal)
CPT/HCPCS: 64555; C1778; J2003

== ENCOUNTER 2024-12-20 08:40 | Outpatient (AMB) | payer MEDICARE, SELFPAY ==
[2024-12-20 09:00] VITALS: BP 130/58; PULSE 76; RESP 16; O2SAT 94
--- NOTE | 2024-12-20 09:00 | MHC.OFFVIS ---
Vital Signs 12/20/24 09:00 12/20/24 10:00 BP 130/58 L 114/64 Blood Pressure Location Lt brachial Lt brachial Position Sitting Sitting Respiration 16 16 Pulse 76 84 Pulse Source Pulse Oximeter Pulse Oximeter Pulse Oximetry (%) 94 96 Oxygen Delivery Method Room Air Room Air Intake Visit Reasons: Right L3 Sprint Elder Counselor Required: No Allergies codeine Adverse Reaction (Intermediate, Verified 12/20/24 09:01) Nausea and Vomiting Medication List - Last Reconciled 12/20/24 by Lilia Corea LPN acetaminophen 1,000 mg PO Q6H PRN alpha lipoic acid 600 mg PO BID antiarthritic combination no.2 (glucosamine-chondroitin) 900 mg PO DAILY atorvastatin 10 mg PO BEDTIME biotin 5,000 mcg PO DAILY butterbur root extract (Petadolex) 75 mg PO BID chlorthalidone 25 mg PO DAILY cholecalciferol (vitamin D3) 25 mcg PO DAILY gabapentin 100 mg PO TID levothyroxine 50 mcg PO DAILY multivitamin 1 tab PO DAILY pantoprazole 40 mg PO BID valsartan 80 mg PO BID verapamil ER 240 mg PO DAILY HPI HPI Right L3 Sprint: Details: Patient presents for scheduled procedure. Denies any recent cough, cold, infection, fever or other significant changes in medical history since last office visit. [facility] Medical History (Updated 12/20/24 @ 10:21 by Jama Hull MD) Intractable back pain Sacroiliac joint dysfunction Ischial bursitis Lumbar spinal stenosis Cluneal neuropathy Lumbar facet arthropathy Disorder of sacrum Surgical History H/O breast surgery Previous section Social History Patient Tobacco Use Status: Never used Tobacco Physical Exam Vital Signs: Last Vital Signs Pulse 84 12/20/24 10:00 Resp 16 12/20/24 10:00 BP 114/64 12/20/24 10:00 Pulse Ox 96 12/20/24 10:00 Oxygen Delivery Method Room Air 12/20/24 10:00 Office Procedures Details: Lumbar Medial Branch Nerve Stimulation Lead Placement, SPR (Sprint) System, Right L3 ? After the risks, benefits and alternatives were discussed with the patient and informed consent was obtained, patient was placed in the prone position and padded to foster comfort. The skin overlying the lumbosacral spine was prepped and draped in sterile fashion. Fluoroscopy was used to identify the spinous process and lamina in the center of the patient?s region of pain. After identifying and marking the intended target along the course of the medial branch nerve, the skin around the planned entry point and the subcutaneous tissues were injected with lidocaine 1. An introducer needle and stimulating probe were assembled, inserted and advanced along the intended course of the medial branch nerve as it traverses the lamina medial and inferior to the zygapophyseal joint, taking care to maintain the proper depth of insertion as the introducer is advanced under fluoroscopic guidance. The introducer needle was delivered to a location in proximity to the nerve. Multiple stimulation parameters were used to deliver stimulation to the target medial branch nerve in concert with stimulating at multiple positions around the nerve. Nerve target acquisition was confirmed noting generation of paresthesias in the paravertebral regions corresponding to the level being stimulated. Various electrical parameter combinations were tested, and the lead location was adjusted (physically relocated) until the patient indicated paresthesia/muscle tension overlapping the distribution of the patient?s typical region of pain. The stimulating probe was removed from the introducer and a percutaneous lead was guided through the needle and delivered to a location in similar proximity to the nerve. Final location was verified with electrical stimulation and documented with fluoroscopy. The introducer needle was removed, and the exposed end of the percutaneous lead was attached to an external stimulator unit. Various electrical parameter combinations were again tested until the patient indicated paresthesia or muscle tension overlapping the distribution of the patient?s typical region of pain. After confirming that lead impedance was in the normal range, the external unit was detached, the needle was removed, and the lead was anchored at the skin. The lead was threaded into the connector block and electrical continuity and desired patient response was confirmed. The connector block was attached to the external stimulator unit. The site was covered with a sterile occlusive dressing. The patient was observed for stability of vital signs and comfort. Sprint PNS Device: Sprint PNS Device [id number] Percutaneous Peripheral Neuroelectrode Procedure: 08597 - Percutaneous Peripheral Neuroelectrode Procedure code (CPT) selection complete Office Meds lidocaine HCl 10 mg/mL (1 %) injection solution Performing Provider: Jama Hull MD Performing Location: [facility] Administered by: Jama Hull MD on 12/20/24 10:21 Dose Route Admin Location Dispensed Lot Number Expiration Date NDC Track Repair Worker 5 mL subcut 5 mL Assessment & Plan Assessment & Plan (1) Lumbar spondylosis: Code(s): M47.816 - Spondylosis without myelopathy or radiculopathy, lumbar region Category: Medical (2) Dysfunction of the multifidus muscle of lumbar region: Code(s): M62.85 - Dysfunction of the multifidus muscles, lumbar region Category: Medical Plan Patient is status post temporary right L3 medial branch nerve stimulator placement. Patient tolerated procedure well and was discharged home in stable condition with discharge instructions. All questions were answered. We will follow-up via telephone or in clinic to assess response to therapy. A follow-up appointment was made during today's visit. Orders: Orders FL guidance in treatment room Today Brenda Payne, BLACK JACK DEALER, REFRIGERATOR CABINETMAKER M47.816 - Spondylosis without myelopathy or radiculopathy, lumbar region AMB Sprint PNS Today Jama Hull MD M47.816 - Spondylosis without myelopathy or radiculopathy, lumbar region, M54.9 - Dorsalgia, unspecified, M62.85 - Dysfunction of the multifidus muscles, lumbar region Coding Level of Care Code Procedure Only Diagnoses Lumbar spondylosis M47.816 Dysfunction of the multifidus muscle of lumbar region M62.85 CPT Codes Sprint PNS - Sprint PNS Device: Sprint PNS Device ([id number]) Sprint PNS - SPRINT: 85721 - Percutaneous Peripheral Neuroelectrode ([id number])
--- OUTSIDE RECORDS SUMMARY | 2024-12-20 09:04 | XMS_ITS | Patient Health Record ---
Author Organization [facility] Address [address] [place] [address] Care Team Providers Care Massage Coordinator Name Role Phone Cuca Castro MD Primary Care Provider Unavail able Gabbie Burton Unavailable [phone] Allergies Allergen (clinical drug ingredient) Drug/Non Drug Allergy documented on EMR Reaction Allergy Type Onset Date Status codeine Codeine sensitive , Vomiting Drug Allergy Active Reason For Referral Diagnosis 1 Pain in unspecified foot (M79.673) Referring Provider First Name Cuca Referring Provider Last Name Gloria Referred Organization [facility] Referred Provider Gabbie Burton Referred Address [address] [place], [place],[address], Referred Provider Specialty Podiatry Referral Priority Routine Medications Medication SIG (Take, Route, Frequency, Duration) Notes Start Date End Date Status Alpha Lipoic Acid 200 MG 1 capsule Orall y Once a day Active Atorvastatin Calcium 10 MG 1 tablet Oral ly Once a day Active Biotene Dry Mouth Ac tive Chlorthalidone 25 MG 1 tablet in the mor elba with food Orally 11/08/2024 Active Vitamin D3 Active Glucosamine Chond Cmp Advanced Active Pantoprazole Sodium 40 MG TAKE 1 TABLET BY MOUTH TWICE A DAY FOR 90 DAYS Oral for 90 Days Active Petadolex Active Valsartan 80 MG TAKE 2 TABLETS BY MO UT EVERY DAY Oral for 90 Days Active Multivitamin Active Verapamil HCl ER 240 MG TAKE 1 TABLET BY MOUTH EVERY DAY Oral for 90 Days Active Levothyroxine Sodium 50 MCG TAKE 1 TABLE T BY MOUTH EVERY MORNING. TAKE ON AN EMPTY STOMACH WITH A FULL GLASS OF WATER. Oral for 90 Days Active Gabapentin 100 MG Oral for 20 Days Active Acetaminophen Active Social History Tobacco Use: Social History [...] No Points 0 Interpretation Negative Vital Signs Blood pressure diastolic 80 mm Hg 12/10/2024 Height 5ft 4inch in 12/10/2024 Blood pressure systolic 120 mm Hg 12/10/2024 Weight 172.4 lbs 12/10/2024 BMI 29.59 kg/m2 12/10/2024 Procedures Procedure Date Ordered Date Performed Result Body Sit e 47465-Qlyynfvr Plate 12/10/2024 N/A Encounters Encounter Location Date Provider Diagnosis [facility] [address] 12/10/2024 Gabbie Burton Ingrown nail L60.0 ; Onychomycosis B35.1 ; Pain in right toe(s) M79.674 and Pain in left toe(s) M79.675 [facility] [address] [address] 09/24/2024 Gabbie Burton Assessments Encounter Date Diagnosis (ICD Code) Assessment Notes Treatment Notes Treatment Clinical Notes Section Notes 12/10/2024 Ingrown nail (ICD-10 - L60.0) 12/10/2024 Onychomycosis (ICD-10 - B35.1) 12/10/2024 Pain in right toe(s) (ICD-10 - M79.674) 12/10/2024 Pain in left toe(s) (ICD-10 - M79.675) Plan Of Treatment Pending Test Test Name Order Date 54560-Egkclnjm Plate 12/10/2024 Next Appt Details Provider Name:Gabbie gallardo, 01/10/2025 10:15:00 AM, [address] [place] [address], [phone], Insurance Providers Payer Name Payer Address Payer Phone Subscriber Number Group Number Insured Name Patient Relationship to Insured Coverage Start Date Coverage End Date [facility] Options [address] [place] [id number] Steph Boudreuax Self - patient is the insured 2 Medical (General) History Medical History History ICD Code Arthritis Back,Hip,and Knee pain CAD (Cholesterol) Cataracts Diverticulosis Headaches/Migraines High Blood Pressure Measles Mumps Chicken pox Transfusions Surgical History Surgery Date(Month/Year) Peripheral Nerve Stimulator Implant 09/30
[2024-12-20 10:00] VITALS: BP 114/64; PULSE 84; RESP 16; O2SAT 96
== END 2024-12-20 10:09 | disposition home or self-care (01) ==
LOC: HO.PMCPRC 08:40
PROVIDERS: PCP Internal Medicine; Visit Provider Internal Medicine
DX: M62.85 Dysfunction of the multifidus muscles, lumbar region (principal); M47.816 Spondylosis without myelopathy or radiculopathy, lumbar region; M54.9 Dorsalgia, unspecified
CPT/HCPCS: 64555

== ENCOUNTER 2024-12-24 09:07 | Outpatient (AMB) | payer MEDICARE, SELFPAY ==
--- NOTE | 2024-12-24 09:10 | A.OFFVIS_ITS ---
Vital Signs 12/24/24 09:12 Height 5 ft 4 in Weight 175 lb BMI 30.0 BP 165/80 H Blood Pressure Location Lt brachial Position Sitting Respiration 16 Pulse 109 H Pulse Source Pulse Oximeter Pulse Oximetry (%) 97 Oxygen Delivery Method Room Air Intake Visit Reasons: s/p right L3 Sprint Surgery Attendant Required: No Allergies codeine Adverse Reaction (Intermediate, Verified 12/24/24 09:13) Nausea and Vomiting Medication List - Last Reconciled 12/24/24 by Lilia Corea LPN acetaminophen 1,000 mg PO Q6H PRN alpha lipoic acid 600 mg PO BID antiarthritic combination no.2 (glucosamine-chondroitin) 900 mg PO DAILY atorvastatin 10 mg PO BEDTIME biotin 5,000 mcg PO DAILY butterbur root extract (Petadolex) 75 mg PO BID chlorthalidone 25 mg PO DAILY cholecalciferol (vitamin D3) 25 mcg PO DAILY famotidine 40 mg PO DAILY gabapentin 100 mg PO TID levothyroxine 50 mcg PO DAILY multivitamin 1 tab PO DAILY pantoprazole 40 mg PO BID valsartan 80 mg PO BID verapamil ER 240 mg PO DAILY HPI HPI s/p right L3 Sprint: Details: History of Present Illness The patient is a 79-year-old female presenting with sacroiliac joint dysfunction for discussion on current treatments and pain management efforts. She experienced prior relief from a cortisone injection administered during a previous clinic visit, noting its effectiveness for several weeks. Currently, posture and movement significantly impact her pain, with sitting alleviating her discomfort in the sacroiliac region but standing or walking resulting in undesirable symptoms. With a change in her lifestyle due to detention, there is a noticeable decrease in mechanical stressors, though residual pain persists, particularly in her knee. Despite attempts at managing her knee pain through cortisone injections and advanced therapies like gel injections and platelet-rich plasma injections, her symptoms persist. She experiences exacerbation of pain after periods of immobility, most prominently upon waking. The patient emphasizes a desire to continue exploring non-surgical interventions for managing her symptoms effectively. Pain Description - Pain onset: Chronic with exacerbation following cortisone injection - Pain quality: Aches and discomfort localized to sacroiliac area and knee - Primary location: Sacroiliac joint and left knee - Radiation: Not specified - Exacerbating factors: Standing, prolonged walking, heavy lifting - Relieving factors: Cortisone injection, sitting, using supportive device - Interference with functions: Affects balance due to knee pain, influences posture, and activity limitations Physical Exam - General- No acute distress - Musculoskeletal- Inspection of sacroiliac joint area shows previous dressing site; clean with no signs of infection as observed Pain Management - Affect: Patient shows concern about pain management balancing with lifestyle changes and detention - Analgesia: Pain relief previously achieved with cortisone injection; ongoing use of Tylenol with moderate relief - Adverse Effects: None reported from current analgesic regimen - Activities of Daily Living: Pain impacts walking, standing, and balance; difficulty with physical tasks post-detention due to pain - Aberrant Drug Related Behaviors: No signs or reports of medication misuse or abuse [facility] Medical History (Updated 01/08/25 @ 15:13 by Jama Hull MD) Intractable back pain Sacroiliac joint dysfunction Ischial bursitis Lumbar spinal stenosis Cluneal neuropathy Lumbar facet arthropathy Disorder of sacrum Surgical History H/O breast surgery Previous section Social History Patient Tobacco Use Status: Never used Tobacco Physical Exam Vital Signs: Last Vital Signs Pulse 109 H 12/24/24 09:12 Resp 16 12/24/24 09:12 BP 165/80 H 12/24/24 09:12 Pulse Ox 97 12/24/24 09:12 Oxygen Delivery Method Room Air 12/24/24 09:12 BMI result Body Mass Index 30.0 Assessment & Plan Assessment & Plan (1) Cluneal neuropathy: Code(s): G58.8 - Other specified mononeuropathies Category: Medical (2) Dysfunction of the multifidus muscle of lumbar region: Code(s): M62.85 - Dysfunction of the multifidus muscles, lumbar region Category: Medical (3) Lumbar spondylosis: Code(s): M47.816 - Spondylosis without myelopathy or radiculopathy, lumbar region Category: Medical (4) Chronic pain: Code(s): G89.29 - Other chronic pain Category: Medical Plan Plan - Perform x-ray of sacroiliac joint to verify lead position - Review alternatives to surgery for osteoarthritis, including re-evaluating previous treatments - Follow-up appointment in seven weeks for further intervention as needed Patient was informed and verbally consented to the use of an ambient scribe for clinic note documentation during this visit. Discussion Notes I discussed with the patient the likelihood of benefits from obtaining an x-ray to assess the current position of the lead for sacroiliac joint dysfunction. I reviewed non-surgical pain management alternatives for osteoarthritis and re- evaluated previous treatments like cortisone injections and platelet-rich plasma therapy. The alternatives to surgery were highlighted to align with her preference to explore conservative options, and the importance of daily functionality and avoiding activities leading to exacerbation was stressed. The patient was advised to obtain the x-ray and contact our office if symptoms significantly changed before the next scheduled appointment. Patient Instructions - Obtain x-ray of sacroiliac joint as discussed - Follow up with office in seven weeks for evaluation - Continue use of Tylenol for pain management as needed - Avoid heavy lifting and activities that exacerbate pain - Contact office sooner if pain increases significantly or if there are any concerns Orders: Orders XR lumbar spine 1V 12/25/24 G58.8 - Other specified mononeuropathies Coding Level of Care Code Est Pt Level 4 (59387) Diagnoses Cluneal neuropathy G58.8 Dysfunction of the multifidus muscle of lumbar region M62.85 Lumbar spondylosis M47.816 Chronic pain G89.29
[2024-12-24 09:12] VITALS: BP 165/80; PULSE 109; RESP 16; O2SAT 97
--- OUTSIDE RECORDS SUMMARY | 2024-12-24 09:57 | XMS_ITS | Patient Health Record ---
Author Organization [facility] Address [address] [place] [address] Care Team Providers Care Crimp Setter Name Role Phone Cuca Castro MD Primary Care Provider Unavail able Gabbie Burton Unavailable [phone] Allergies Allergen (clinical drug ingredient) Drug/Non Drug Allergy documented on EMR Reaction Allergy Type Onset Date Status codeine Codeine sensitive , Vomiting Drug Allergy Active Reason For Referral Diagnosis 1 Pain in unspecified foot (M79.673) Referring Provider First Name Cuca Referring Provider Last Name Gloria Referred Organization [facility] Referred Provider Gabbie Burton Referred Address [address] [place], [place],[address], Referred Provider Specialty Podiatry Referral Priority Routine [...] Ordered Date Performed Result Body Sit e 65755-Ibbcwhby Plate 12/10/2024 N/A Encounters Encounter Location Date Provider Diagnosis [facility] [address] 12/10/2024 Gabbie Burton Ingrown nail L60.0 ; Onychomycosis B35.1 ; Pain in right toe(s) M79.674 and Pain in left toe(s) M79.675 [facility] [address] [address] 09/24/2024 Gabbie Burton Assessments Encounter Date Diagnosis (ICD Code) Assessment Notes Treatment Notes Treatment Clinical Notes Section Notes 12/10/2024 Ingrown nail (ICD-10 - L60.0) 12/10/2024 Onychomycosis (ICD-10 - B35.1) 12/10/2024 Pain in right toe(s) (ICD-10 - M79.674) 12/10/2024 Pain in left toe(s) (ICD-10 - M79.675) Plan Of Treatment Pending Test Test Name Order Date 36249-Arcdatkr Plate 12/10/2024 Next Appt Details Provider Name:Gabbie gallardo, 01/10/2025 10:15:00 AM, [address] [place] [address], [phone], Insurance Providers Payer Name Payer Address Payer Phone Subscriber Number Group Number Insured Name Patient Relationship to Insured Coverage Start Date Coverage End Date [facility] Options [address] [place] [id number] Steph Boudreaux Self - patient is the insured 2 Medical (General) History Medical History History ICD Code Arthritis Back,Hip,and Knee pain CAD (Cholesterol) Cataracts Diverticulosis Headaches/Migraines High Blood Pressure Measles Mumps Chicken pox Transfusions Surgical History Surgery Date(Month/Year) Peripheral Nerve Stimulator Implant 09/30
--- OUTSIDE RECORDS SUMMARY | 2024-12-24 09:57 | XMS_ITS ---
Author Organization [facility] Address [address] [place] [address] Care Team Providers Care Lasting Room Machine Operator Name Role Phone Gloria GRECO, Cuca Primary Care Provider Unavail Gabbie Marr [phone] REASON FOR VISIT FURNACE COMBUSTION TESTER Encounters Encounter Location Date Provider Diagnosis [address] [address] 09/24/2024 Gabbie Burton Plan Of Treatment Next Appt Details Provider Name:Gabbie gallardo, 01/10/2025 10:15:00 AM, [address] [place], [address], Progress Notes * Divya PRICEDOB:1945 (78 yo F)Acc No.[id number]:09/24/2024 Patient:?Divya PRICE :1945???Age:78 Y???Sex:Female Address:[address] , [place], [address] * true * Date:? Generated for Printi ng/Faweslyg/eTransmitting on:?12/24/2024 09:57 AM EDT
--- OUTSIDE RECORDS SUMMARY | 2024-12-24 09:57 | XMS_ITS ---
[facility] Address [address] [place] [address] Care Team Providers Care Physician In Private Practice Name Role Phone Gloria GRECO, Cuca Primary Care Provider Unavail able Gabbie Burton Unavailable [phone] Allergies Allergen (clinical drug ingredient) Drug/Non Drug [...] Ordered Date Performed Result Body Sit e 40114-Vwyqcytm Plate 12/10/2024 N/A Encounters Encounter Location Date Provider Diagnosis [facility] [place] [address] [place] [address] 12/10/2024 Gabbie Burton Ingrown nail L60.0 ; [...] Treatment Pending Test Test Name Order Date 99021-Auusnfzg Plate 12/10/2024 Next Appt Details Follow Up: 2-3 Months, Reaso n: Provider Name:Gabbie gallardo, 01/10/2025 10:15:00 AM, [address] [place] [address], [phone], Procedure Notes * Category Sub-Category Detail Notes [...] was recommended for pain or discomfort - 33509 Anesthesia 3cc of 1 percent Lid ocaine Plain local anesthesic utilizing aseptic technique Location Medial nail border, TA Progress Notes * Steph PRICE BDOB:02/1946 (79 yo F)Acc No.[id number]:12/10/2024 Progress Notes Patient:?Steph PRICE B Provider:?Gabbie Burton DPM :1945???Age:79 Y???Sex:Female D ate:12/10/2024 Address:[address] [place], [place] [id number] Pcp:Cuca Castro MD Subjective: * Chief Complaints: [...] was recommended for pain or discomfort - 66313.? * Procedure Codes:?32938 Avuls ion Plate, Modifiers: XS * Preventive [...] use of a nail nipper and/or dremel-type grinder machine knife setter, to a more viable healthy nail plate [...] DPM Date:?0 12/10/2024 Generated for Shaun cherry/Philomena/eTransmitting on:?12/24/2024 09:57 AM EDT History and Physical Notes * [...]
== END 2024-12-24 09:50 | disposition home or self-care (01) ==
LOC: HO.PMC 09:08
PROVIDERS: PCP Internal Medicine; Visit Provider Internal Medicine
DX: G58.8 Other specified mononeuropathies (principal); M62.85 Dysfunction of the multifidus muscles, lumbar region; M47.816 Spondylosis without myelopathy or radiculopathy, lumbar region; G89.29 Other chronic pain
CPT/HCPCS: 99024

== ENCOUNTER → 2024-12-24 09:07 | Outpatient (BNVA) | payer MEDICARE, SELFPAY | PROVIDERS: PCP Internal Medicine; Visit Provider Internal Medicine | DX: M47.816 Spondylosis without myelopathy or radiculopathy, lumbar region (principal); M62.85 Dysfunction of the multifidus muscles, lumbar region; G58.8 Other specified mononeuropathies; G89.29 Other chronic pain | CPT/HCPCS: 99212 ==

== ENCOUNTER 2024-12-25 09:23 | Outpatient (REF) | payer MEDICARE, SELFPAY ==
--- NOTE | ~2024-12-25 | XR_ITS ---
EXAMINATION: XR LUMBOSACRAL SPINE CLINICAL INFORMATION: G58.8 - Other specified mononeuropathies COMPARISON: 12/20/2024. TECHNIQUE: AP view of the lumbosacral spine. FINDINGS: A spinal stimulator lead projects over the left sacral alae, with tip just below the inferior aspect of the left SI joint. There is a right-sided lead present as well, possibly abandoned, with tip appearing to terminate overlying the right inferior endplate of L4. Cannot further assess lead position on single view. Right convex scoliosis with advanced degenerative spondylosis of the lower lumbar spine. 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 Sacrum appears intact. Mild degenerative arthritis in both hip joints. No bone lesions or fractures. Normal-appearing soft tissues. XR/XR lumbar spine 1V IMPRESSION: 1. Left sacral stimulator lead as detailed. 2. Possibly abandoned right lead. Electronically signed by: Van Burns MD 12/27/2024 10:25 AM EDT
--- OUTSIDE RECORDS SUMMARY | 2024-12-25 10:17 | XMS_ITS | Patient Health Record ---
Author Organization [facility] Address [address] [place] [address] Care Team Providers Care Dragline Engineer Name Role Phone Cuca Castro MD Primary Care Provider Unavail able Gabbie Burton Unavailable [phone] Allergies Allergen (clinical drug ingredient) Drug/Non Drug Allergy documented on EMR Reaction Allergy Type Onset Date Status codeine Codeine sensitive , Vomiting Drug Allergy Active Reason For Referral Diagnosis 1 Pain in unspecified foot (M79.673) Referring Provider First Name Cuca Referring Provider Last Name Gloria Referred Organization [facility] Referred Provider Gabbie Burton Referred Address [address] [place], [place],[address], Referred Provider Specialty Podiatry Referral Priority Routine [...] Ordered Date Performed Result Body Sit e 24542-Nuboipwl Plate 12/10/2024 N/A Encounters Encounter Location Date Provider Diagnosis [facility] [address] 12/10/2024 Gabbie Burton Ingrown nail L60.0 ; Onychomycosis B35.1 ; Pain in right toe(s) M79.674 and Pain in left toe(s) M79.675 [facility] [address] [address] 09/24/2024 Gabbie Burton Assessments Encounter Date Diagnosis (ICD Code) Assessment Notes Treatment Notes Treatment Clinical Notes Section Notes 12/10/2024 Ingrown nail (ICD-10 - L60.0) 12/10/2024 Onychomycosis (ICD-10 - B35.1) 12/10/2024 Pain in right toe(s) (ICD-10 - M79.674) 12/10/2024 Pain in left toe(s) (ICD-10 - M79.675) Plan Of Treatment Pending Test Test Name Order Date [id number]-Chukxxis Plate 12/10/2024 Next Appt Details Provider Name:Gabbie gallardo, 01/10/2025 10:15:00 AM, [address] [place] [address], [phone], Insurance Providers Payer Name Payer Address Payer Phone Subscriber Number Group Number Insured Name Patient Relationship to Insured Coverage Start Date Coverage End Date [facility] Options [address] [place] [id number] [phone] [id number] Steph Boudreaux Self - patient is the insured 2 Medical (General) History Medical History History ICD Code Arthritis Back,Hip,and Knee pain CAD (Cholesterol) Cataracts Diverticulosis Headaches/Migraines High Blood Pressure Measles Mumps Chicken pox Transfusions Surgical History Surgery Date(Month/Year) Peripheral Nerve Stimulator Implant 09/30
--- OUTSIDE RECORDS SUMMARY | 2024-12-25 10:17 | XMS_ITS ---
Author Organization [facility] Address [address] [place] [address] Care Team Providers Care Kinesiology Internship Name Role Phone Gloria GRECO, Cuca Primary Care Provider Unavail Gabbie Marr [phone] REASON FOR VISIT CLINICAL RESEARCH ASSOCIATE Encounters Encounter Location Date Provider Diagnosis [address] [address] 09/24/2024 Gabbie Burton Plan Of Treatment Next Appt Details Provider Name:Gabbie gallardo, 01/10/2025 10:15:00 AM, [address] [place], [address], Progress Notes * Divya PRICEDOB:1945 (78 yo F)Acc No.[id number]:09/24/2024 Patient:?Divya PRICE :1945???Age:78 Y???Sex:Female Address:[address] , [place], [address] * true * Date:? Generated for Printi ng/Faweslyg/eTransmitting on:?12/25/2024 10:17 AM EDT
--- OUTSIDE RECORDS SUMMARY | 2024-12-25 10:17 | XMS_ITS ---
[facility] Organization [facility] Address [address] [place] [address] Care Team Providers Care Warehouse Stock Clerk Name Role Phone Gloria GRECO, Cuca Primary Care Provider Unavail able Gabbie Burton Unavailable [phone] Allergies Allergen (clinical drug ingredient) Drug/Non Drug [...] Ordered Date Performed Result Body Sit e 43285-Mqfzffpn Plate 12/10/2024 N/A Encounters Encounter Location Date Provider Diagnosis [facility] [address] [place] [address] 12/10/2024 Gabbie Burton Ingrown nail L60.0 ; [...] Treatment Pending Test Test Name Order Date 27486-Ochyntbu Plate 12/10/2024 Next Appt Details Follow Up: 2-3 Months, Reaso n: Provider Name:Gabbie gallardo, 01/10/2025 10:15:00 AM, [address] [place] [address], [id number], Procedure Notes * Category Sub-Category Detail Notes [...] was recommended for pain or discomfort - 11452 Anesthesia 3cc of 1 percent Lid ocaine Plain local anesthesic utilizing aseptic technique Location Medial nail border, TA Progress Notes * Steph PRICE BDOB:02/1946 (79 yo F)Acc No.[id number]:12/10/2024 Progress Notes Patient:?Steph PRICE B Provider:?Gabbie Burton DPM :1945???Age:79 Y???Sex:Female D ate:12/10/2024 Address:[address] [place], [place] [id number] Pcp:Cuca Castro MD Subjective: * Chief Complaints: [...] was recommended for pain or discomfort - 04802.? * Procedure Codes:?03089 Avuls ion Plate, Modifiers: XS * Preventive [...] use of a nail nipper and/or dremel-type facing grinder, to a more viable healthy nail [...] DPM Date:?0 12/10/2024 Generated for Shaun cherry/Philomena/eTransmitting on:?12/25/2024 10:17 AM EDT History and Physical Notes * [...]
== END 2024-12-25 09:24 | disposition home or self-care (01) ==
LOC: HO.XRAY 09:23
PROVIDERS: PCP Internal Medicine; Visit Provider Internal Medicine
DX: G58.8 Other specified mononeuropathies (principal)
CPT/HCPCS: 72020

== ENCOUNTER → 2024-12-25 09:27 | Outpatient (BNV) | payer MEDICARE, SELFPAY | PROVIDERS: PCP Internal Medicine; Visit Provider Radiology Diagnostic Radiology | DX: G58.8 Other specified mononeuropathies (principal) | CPT/HCPCS: 72020 ==

== ENCOUNTER 2025-01-18 09:37 | Outpatient (AMB) | payer MEDICARE, SELFPAY ==
[2025-01-18 09:49] VITALS: BP 110/60; PULSE 95; RESP 16; O2SAT 97; BMI 30.2
--- NOTE | 2025-01-18 09:49 | MHC.OFFVIS ---
Vital Signs 01/18/25 09:49 Height 5 ft 4 in Weight 176 lb BMI 30.2 BP 110/60 Blood Pressure Location Lt brachial Position Sitting Respiration 16 Pulse 95 Pulse Source Pulse Oximeter Pulse Oximetry (%) 97 Oxygen Delivery Method Room Air Intake Visit Reasons: Discuss X-Ray Results Glue Mounter Operator Required: No Allergies codeine Adverse Reaction (Intermediate, Verified 01/18/25 09:50) Nausea and Vomiting Medication List - Last Reconciled 01/18/25 by Lilia Corea LPN acetaminophen 1,000 mg PO Q6H PRN alpha lipoic acid 600 mg PO BID antiarthritic combination no.2 (glucosamine-chondroitin) 900 mg PO DAILY atorvastatin 10 mg PO BEDTIME biotin 5,000 mcg PO DAILY butterbur root extract (Petadolex) 75 mg PO BID chlorthalidone 25 mg PO DAILY cholecalciferol (vitamin D3) 25 mcg PO DAILY famotidine 40 mg PO DAILY gabapentin 100 mg PO TID levothyroxine 50 mcg PO DAILY multivitamin 1 tab PO DAILY pantoprazole 40 mg PO BID valsartan 80 mg PO BID verapamil ER 240 mg PO DAILY HPI HPI Discuss X-Ray Results: Details: History of Present Illness The patient is a 79-year-old female presenting with an issue with her spinal stimulator device and associated pain management. She reports that the left-sided stimulator, confirmed through x-ray as having experienced migration, does not seem to be effective in controlling her pain, particularly in the morning, although mobility does seem to provide some relief. The problem with the device includes incorrect previous operation settings causing extended usage time, but she has since resolved this by correctly shutting it off to avoid overuse. Despite these adjustments, she continues to report inefficacy in overall pain management, with details provided to her device sales representative [employer] for further programming assistance. The stimulator lead's migration into her posterior sacral space was identified as a mechanical issue needing further attention. Currently, there are no reports of deleterious side effects or changes in her behavior related to her pain management regimen, indicating stable but inadequately managed chronic pain requiring further intervention. Pain Description - Onset and timing: Morning pain exacerbation after waking. - Quality and character: Pain presence suggesting inadequate stimulator efficacy. - Primary location: Left-sided, involving posterior sacral space. - Exacerbating factors: Morning post-rest periods. - Relieving factors: Ambulation and mobility provide partial relief. - Interference with activities: Inadequate pain management impacting daily function, primarily mornings. Physical Exam Results - X-ray imaging: Migraine of spinal stimulator lead into posterior sacral space, left side. Pain Management - Affect: Inadequate pain relief impacting daily routine, particularly mornings, yet mobility helps. - Analgesia: Issues with stimulator efficacy; programming suggested as a corrective measure. - Adverse Effects: None reported. - Activities of Daily Living: Pain reduction needed for morning functionality improvement; ambulation is beneficial. - Aberrant Drug Related Behaviors: None observed or reported. [facility] Medical History (Updated 01/08/25 @ 15:13 by Jama Hull MD) Intractable back pain Sacroiliac joint dysfunction Ischial bursitis Lumbar spinal stenosis Cluneal neuropathy Lumbar facet arthropathy Disorder of sacrum Surgical History H/O breast surgery Previous section Social History Patient Tobacco Use Status: Never used Tobacco Physical Exam Vital Signs: Last Vital Signs Pulse 95 01/18/25 09:49 Resp 16 01/18/25 09:49 BP 110/60 01/18/25 09:49 Pulse Ox 97 01/18/25 09:49 Oxygen Delivery Method Room Air 01/18/25 09:49 BMI result Body Mass Index 30.2 Assessment & Plan Assessment & Plan (1) Cluneal neuropathy: Code(s): 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 - Consideration of minor surgical intervention if reprogramming fails. - Coordinate with device sales representative [employer] on programming adjustments. - Encourage ambulation for symptomatic relief. - Further imaging contingent on programming efficacy outcomes. - Avoid full surgical revision unless necessary. Patient was informed and verbally consented to the use of an ambient scribe for clinic note documentation during this visit. Discussion Notes I discussed with the patient the diagnostic findings indicating mild migration of the spinal stimulator lead into the posterior sacral space, expressing this may contribute to inadequate pain relief. I recommended attempting to reprogram the device by activating the first electrode to see if it would help address her symptoms before considering minor or full surgical interventions. We agreed on scheduling an appointment with the stimulator device sales representative [employer] for programming adjustments, and the patient understood the necessity of this approach. I explained that if the reprogramming did not yield satisfactory results, a less invasive procedure to adjust the lead positioning may be considered, outlining that complete revision is a significant procedure that we aim to avoid initially. Consent was secured for potential future procedures as needed. Patient Instructions - Follow up with the device sales representative [employer] for reprogramming appointments. - Continue regular daily activities and ambulation as comfortable. - Monitor morning pain levels and document any changes. - Report any significant changes in pain or device function immediately. - Understand alternatives discussed and avoid unauthorized device adjustments. Coding Level of Care Code Est Pt Level 4 (03574) Diagnoses Cluneal neuropathy G58.8 Sacroiliac joint dysfunction M53.3 Chronic pain G89.29
--- OUTSIDE RECORDS SUMMARY | 2025-01-18 09:51 | XMS_ITS ---
Author Organization [facility] Address [address] [place] [address] Care Team Providers Care Cutting Table Operator Name Role Phone Gloria GRECO, Cuca Primary Care Provider Unavail able Gabbie Burton Unavailable [phone] Allergies Allergen (clinical drug ingredient) Drug/Non Drug Allergy documented on EMR Reaction Allergy Type Onset Date Status codeine Codeine sensitive , Vomiting Drug Allergy Active REASON FOR VISIT Fungal Nails Medications Medication SIG (Take, Route, Frequency, Duration) Notes Start Date End Date Status Petadolex Active Multivitamin Active Pantoprazole Sodium 40 MG TAKE 1 TABLET BY MOUTH TWICE A DAY FOR 90 DAYS Oral for 90 Days Active Verapamil HCl ER 240 MG TAKE 1 TABLET BY MOUTH EVERY DAY Oral for 90 Days Active Valsartan 80 MG TAKE 2 TABLETS BY MO UTH EVERY DAY Oral for 90 Days Active Gabapentin 100 MG Oral for 20 Days Active Levothyroxine Sodium 50 MCG TAKE 1 TABLE T BY MOUTH EVERY MORNING. TAKE ON AN EMPTY STOMACH WITH A FULL GLASS OF WATER. Oral for 90 Days Active Alpha Lipoic Acid 200 MG 1 capsule Orall y Once a day Active Acetaminophen Active Atorvastatin Calcium 10 MG 1 tablet Oral ly Once a day Active Biotene Dry Mouth Ac tive Vitamin D3 Active Chlorthalidone 25 MG 1 tablet in the mor elba with food Orally 11/08/2024 Active Glucosamine Chond Cmp Advanced Active Social History Tobacco Use: Social History Observation Description Date Details (start date - stop date) Never Smoker NA - NA Tobacco use other than smoking: Question Answer Notes Are you an other tobacco user? No Tobacco Control (Standard) Question Answer Notes Tobacco use: Nonsmoker Additional Findings: Tobacco non-user Current no nsmoker Vital Signs Height 5ft 4inch in 01/10/2025 Weight 172 lbs 01/10/2025 BMI 29.52 kg/m2 01/10/2025 Blood pressure systolic 120 mm Hg 01/11/20 25 Blood pressure diastolic 80 mm Hg 025 Procedures Procedure Date Ordered Date Performed Result Body Sit e 15600-AICQWBW NAIL, 6 OR MORE 01/10/2025 N/A Encounters Encounter Location Date Provider Diagnosis [facility] [address] [place] [address] 01/10/2025 Gabbie Burton Onychomycosis B35.1 ; Pain in right toe(s) M79.674 and Pain in left toe(s) M79.675 Assessments Encounter Date Diagnosis (ICD Code) Assessment Notes Treatment Notes Treatment Clinical Notes Section Notes 01/10/2025 Onychomycosis (ICD-10 - B35.1) 01/10/2025 Pain in right toe(s) (ICD-10 - M79.674) 01/10/2025 Pain in left toe(s) (ICD-10 - M79.675) Plan Of Treatment Pending Test Test Name Order Date 10223-PYWBLKM NAIL, 6 OR MORE 01/10/2025 Next Appt Details Follow Up: 2-3 Months, Reaso n: Procedure Notes * Category Sub-Category Detail Notes Debride Nail 6-10 Nail debridement Due to the cl inical pathology outlined in the exam findings, performance of this nail treatment is medically necessary as its management by an unskilled/untrained nonprofessional would put this patients foot and overall health at risk. Therefore, debridement to affected nail(s), as described in exam ( TA, T1, T2, T3, T4, T5, T6, T7, T8, T9, ), was performed exclusively by the physician of record to reduce/remove overall nail length, girth, thickness, subungual debris, and necrotic tissue, by manual and/or electrical means through the use of a nail nipper and/or dremel-type grinder operator, to a more viable healthy nail plate or bed tissue 6-10 nails in total. Silver nitrate was used for any petechial bleeding as necessary. Definitive antifungal treatment options, both pharmaceutical and surgical, have been reviewed and discussed with the patient. The patient solely prefers the use of intermittent/as needed professional debridement services for their nail condition and understands the need for additional periodic treatments to maintain effectiveness in symptomatic relief - 75983 Progress Notes * Steph PRICE BDOB:02/1946 (79 yo F)Acc No.[id number]:01/10/2025 Progress Notes Patient:?Steph PRICE B Provider:?Gabbie Burton DPM :1945???Age:79 Y???Sex:Female D ate:01/10/2025 Address: [address], [facility] Pcp:Cuca Castro MD Subjective: * Chief Complaints: * ???Fungal Nails * HPI: ???Painful Nails:?Nature:?aching, tender, discolored, [...] History:? * Surgical History:?Peripheral Nerve Stimulator Implant 10/19/2023Sprint Implant 01/20 * Hospitalization/Major Diagno stic Procedure:?Denies Past Hospitalization * Family History:?Mother: dece ased, Foot problems, diagnosed with Unspecified essential hypertension, Unspecified cerebral artery occlusion with cerebral infarction, Family history of arthritis.?Father: , diagnosed with Diabetic - NIDDM, Unspecified essential hypertension.? * Social History:?Tobacco Use:?Tobacco use other than smoking?Are you an other tobacco user??No ?Tobacco Control (Standard)?Tobacco use:?Nonsmoker ?Additional Findings: Tobacco non-user?Current nonsmoker ???Miscellaneous:?Caffeine: yes, frequency:. ?Children: yes, 2. ?Exercise: no. ?Marital status: . 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 * Medications:?TakingMultivita min Petadolex Glucosamine Chond Cmp [...] sensitiv e , Vomitingyes[Allergies Verified] Objective: * Vitals:?Ht: 5ft 4inch, Wt: 1 72, BMI: 29.52, Shoe size: 9, BP: 120/80 mm Hg, Ht- cm: 162.56 cm, Wt-k.02 kg. * Examination: ???Nails: ?NAILS are:?Elongated, overgrown, dystrophic, lytic, greater than [...] symmetrical fashion , B/L.? Assessment: * Assessment: 1.?Pain in right toe(s) - M7 9.674???2.?Onychomycosis - B35.1 (Primary)???Specify :Acute problem, Uncomplicated (3) Dx New problem, Prognosis Uncertain (4)???3.?Pain in left toe(s) - M79.675??? Plan: * Treatment: * Procedures:?Debride Nail 6-10:?Nail debridement?Due to the clinical pathology outlined in the exam findings, performance of this nail treatment is medically necessary as its management by an unskilled/untrained nonprofessional would put this patients foot and overall health at risk. Therefore, debridement to affected nail(s), as described in exam ( TA, T1, T2, T3, T4, T5, T6, T7, T8, T9, ), was performed exclusively by the physician of record to reduce/remove overall nail length, girth, thickness, subungual debris, and necrotic tissue, by manual and/or electrical means through the use of a nail nipper and/or dremel-type grinder operator, to a more viable healthy nail plate or bed tissue 6- 10 nails in total. Silver nitrate was used for any petechial bleeding as necessary. Definitive antifungal treatment options, both pharmaceutical and surgical, have been reviewed and discussed with the patient. The patient solely prefers the use of intermittent/as needed professional debridement services for their nail condition and understands the need for additional periodic treatments to maintain effectiveness in symptomatic relief - 98169.? * Procedure Codes:?96691 DEBRI DE NAIL, 6 OR MORE, Modifiers: XS * Preventive Medicine:? ??Screening/Special Tests:?Fall Risk?Screening:?No falls in the past year ?FALLS: Screening for Future Fall Risk?Have you had any falls with injury in the past year??No * Follow Up:?2-3 Months * Images: * Sign off status: Completed true * Provider:?Gabbie Burton DPM Date:?0 01/10/2025 Generated for Shaun cherry/Philomena/eTransmitting on:?01/18/2025 09:50 AM EDT History and Physical Notes * HPI (History of Present Illness) Category Sub-Category Detail Notes Category Not es Painful Nails Aggravated by: shoegear causing difficulty standing/walking Course: worse Duration: several months Location: All toes Nature: aching, tender, disc olored, thick Treatments: none Examination Category Sub-Category Detail Notes Category Not es Neurological SENSORY: Neurological exa m reveals intact [...]
== END 2025-01-18 10:15 | disposition home or self-care (01) ==
LOC: HO.PMC 09:37
PROVIDERS: PCP Internal Medicine; Visit Provider Internal Medicine
DX: G58.8 Other specified mononeuropathies (principal); M53.3 Sacrococcygeal disorders, not elsewhere classified; G89.29 Other chronic pain
CPT/HCPCS: 99214

== ENCOUNTER → 2025-01-18 09:37 | Outpatient (BNVA) | payer MEDICARE, SELFPAY | PROVIDERS: PCP Internal Medicine; Visit Provider Internal Medicine | DX: G58.8 Other specified mononeuropathies (principal); M53.3 Sacrococcygeal disorders, not elsewhere classified; G89.29 Other chronic pain | CPT/HCPCS: 99212 ==

== ENCOUNTER 2025-02-13 09:45 | Outpatient (AMB) | payer MEDICARE, SELFPAY ==
[2025-02-13 09:50] VITALS: BP 140/65; PULSE 87; RESP 16; O2SAT 98; BMI 29.9
--- NOTE | 2025-02-13 09:50 | MHC.OFFVIS ---
Vital Signs 02/13/25 09:50 Height 5 ft 4 in Weight 174 lb BMI 29.9 BP 140/65 H Blood Pressure Location Rt brachial Position Sitting Respiration 16 Pulse 87 Pulse Source Pulse Oximeter Pulse Oximetry (%) 98 Oxygen Delivery Method Room Air Intake Visit Reasons: Sprint removal Intake Note: Lower back Right side sprint removal with tip intact. Criminal Psychologist Required: No Accompanied by: Self / Same As Patient Allergies codeine Adverse Reaction (Intermediate, Verified 02/13/25 09:54) Nausea and Vomiting HPI Comments Details: Steph is a very pleasant 79-year-old female who presented to the office today for removal of her right lumbar sprint. Pain today is rated as a 2/10. She reports improvement in her pain, function and mobility after placement of the device. Does endorse some worsening left-sided lumbar pain, [employer] PNS device has not been working as well. Currently working with the sales service representative and states that Dr. Hull is aware. Prior visit with Dr. Hull 12/2024: History of Present Illness The patient is a 79-year-old female presenting with an issue with her spinal stimulator device and associated pain management. She reports that the left-sided stimulator, confirmed through x-ray as having experienced migration, does not seem to be effective in controlling her pain, particularly in the morning, although mobility does seem to provide some relief. The problem with the device includes incorrect previous operation settings causing extended usage time, but she has since resolved this by correctly shutting it off to avoid overuse. Despite these adjustments, she continues to report inefficacy in overall pain management, with details provided to her device sales service representative for further programming assistance. The stimulator lead's migration into her posterior sacral space was identified as a mechanical issue needing further attention. Currently, there are no reports of deleterious side effects or changes in her behavior related to her pain management regimen, indicating stable but inadequately managed chronic pain requiring further intervention. Pain Description - Onset and timing: Morning pain exacerbation after waking. - Quality and character: Pain presence suggesting inadequate stimulator efficacy. - Primary location: Left-sided, involving posterior sacral space. - Exacerbating factors: Morning post-rest periods. - Relieving factors: Ambulation and mobility provide partial relief. - Interference with activities: Inadequate pain management impacting daily function, primarily mornings. Physical Exam Results - X-ray imaging: Migraine of spinal stimulator lead into posterior sacral space, left side. Pain Management - Affect: Inadequate pain relief impacting daily routine, particularly mornings, yet mobility helps. - Analgesia: Issues with stimulator efficacy; programming suggested as a corrective measure. - Adverse Effects: None reported. - Activities of Daily Living: Pain reduction needed for morning functionality improvement; ambulation is beneficial. - Aberrant Drug Related Behaviors: None observed or reported. [facility] Medical History (Updated 01/08/25 @ 15:13 by Jama Hull MD) Intractable back pain Sacroiliac joint dysfunction Ischial bursitis Lumbar spinal stenosis Cluneal neuropathy Lumbar facet arthropathy Disorder of sacrum Surgical History H/O breast surgery Previous section Social History Patient Tobacco Use Status: Never used Tobacco Review of Systems Const All systems reviewed & are unremarkable except as noted in HPI and below Physical Exam Vital Signs: Last Vital Signs Pulse 87 02/13/25 09:50 Resp 16 02/13/25 09:50 BP 140/65 H 02/13/25 09:50 Pulse Ox 98 02/13/25 09:50 Oxygen Delivery Method Room Air 02/13/25 09:50 BMI result Body Mass Index 29.9 General: awake, alert, oriented. Answers questions appropriately. Fully engaged in examination. Skin: warm, dry, intact HEENT: Normocephalic. Hearing intact. Cardiac: External chest normal in appearance. Respiratory: No cough, audible wheezing or stridor. Abdomen: without gross distension. MS: No obvious swelling or deformities. Able to transition from sit to stand unassisted. Ambulates with bilaterally normal heel strike and toe off Neurological: Oriented to person, place, time and situation. Thought process intact. No gait abnormalities appreciated. Psychiatric: Appropriate mood and affect. Good judgment and insight. Assessment & Plan Assessment & Plan (1) Cluneal neuropathy: Code(s): G58.8 - Other specified mononeuropathies Category: Medical (2) Dysfunction of the multifidus muscle of lumbar region: Code(s): M62.85 - Dysfunction of the multifidus muscles, lumbar region Category: Medical (3) Lumbar spondylosis: Code(s): M47.816 - Spondylosis without myelopathy or radiculopathy, lumbar region Category: Medical (4) Chronic pain: Code(s): G89.29 - Other chronic pain Category: Medical Plan Right lumbar sprint lead removed, tip intact. Patient tolerated well. Continue working with [employer] sales service representative on reprogramming for the left-sided PNS device. If no improvement with reprogramming follow-up with Dr. Hull in the office to further discuss. All questions and concerns were answered, patient agrees with the plan. Coding Level of Care Code Est Pt Level 3 (89039) Complex EM visit Add On G2211 Diagnoses Cluneal neuropathy G58.8 Dysfunction of the multifidus muscle of lumbar region M62.85 Lumbar spondylosis M47.816 Chronic pain G89.29
--- OUTSIDE RECORDS SUMMARY | 2025-02-13 10:48 | XMS_ITS | Patient Health Record ---
[facility] Organization [facility] Address [address] [place] [address] Care Team Providers Care Clinical Informatics Physician Name Role Phone Cuca Castro MD Primary Care Provider Unavail able Gabbie Burton Unavailable [phone] Allergies Allergen (clinical drug ingredient) Drug/Non Drug Allergy documented on EMR Reaction Allergy Type Onset Date Status codeine Codeine sensitive , Vomiting Drug Allergy Active Reason For Referral Diagnosis 1 Pain in unspecified foot (M79.673) Referring Provider First Name Cuca Referring Provider Last Name Gloria Referred Organization [facility] Referred Provider Gabbie Burton Referred Address [address] [place], [place],[address], Referred Provider Specialty Podiatry Referral Priority Routine Medications Medication SIG (Take, Route, Frequency, Duration) Notes Start Date End Date Status Pantoprazole Sodium 40 MG TAKE 1 TABLET [...] y Once a day Active Acetaminophen Active Biotene Dry Mouth Ac tive Atorvastatin Calcium 10 MG 1 tablet Oral ly Once a day Active Vitamin D3 Active Chlorthalidone 25 MG 1 tablet in the mor elba with food Orally 11/08/2024 Active Petadolex Active Glucosamine Chond Cmp Advanced Active Multivitamin Active Social History Tobacco Use: Social History Observation Description Date Details (start date - stop date) Never Smoker NA - NA Tobacco use other than smoking: Question Answer Notes Are you an other tobacco user? No Tobacco Control (Standard) Question Answer Notes Tobacco use: Nonsmoker Additional Findings: Tobacco non-user Current no nsmoker Vital Signs Blood pressure diastolic 80 mm Hg 01/10/2025 Height 5ft 4inch in 01/10/2025 Blood pressure systolic 120 mm Hg 01/10/2025 Weight 172 lbs 01/10/2025 BMI 29.52 kg/m2 01/10/2025 Procedures Procedure Date Ordered Date Performed Result Body Sit e 16739-Ejzejszx Plate 12/10/2024 N/A 12667-DXOIVSH NAIL, 6 OR MORE 01/10/2025 N/A Encounters Encounter Location Date Provider Diagnosis [facility] [address] 12/10/2024 Gabbie Burton Ingrown nail L60.0 ; Onychomycosis B35.1 ; Pain in right toe(s) M79.674 and Pain in left toe(s) M79.[address] [address] 01/10/2025 Gabbie Burton Onychomycosis B35.1 ; Pain in right toe(s) M79.674 and Pain in left toe(s) M79.[address] [address] 09/24/2024 Gabbie Burton Assessments Encounter Date Diagnosis (ICD Code) Assessment Notes Treatment Notes Treatment Clinical Notes Section Notes 12/10/2024 Ingrown nail (ICD-10 - L60.0) 12/10/2024 Onychomycosis (ICD-10 - B35.1) 01/10/2025 Pain in right toe(s) (ICD-10 - M79.674) 01/10/2025 Onychomycosis (ICD-10 - B35.1) 01/10/2025 Pain in left toe(s) (ICD-10 - M79.675) 12/10/2024 Pain in right toe(s) (ICD-10 - M79.674) 12/10/2024 Pain in left toe(s) (ICD-10 - M79.675) Plan Of Treatment Pending Test Test Name Order Date [id number] NAIL, 6 OR MORE 01/10/2025 [id number]-Jfkphepm Plate 12/10/2024 Insurance Providers Payer Name Payer Address Payer Phone Subscriber Number Group Number Insured Name Patient Relationship to Insured Coverage Start Date Coverage End Date [facility] [address] [place] [address] [phone] [id number] Steph Boudreaux Self - patient is the insured 2 Medical (General) History Medical History History ICD Code Arthritis Back,Hip,and Knee pain CAD (Cholesterol) Cataracts Diverticulosis Headaches/Migraines High Blood Pressure Measles Mumps Chicken pox Transfusions Surgical History Surgery Date(Month/Year) Peripheral Nerve Stimulator Implant 09/30 [employer] Implant 01/20
== END 2025-02-13 10:26 | disposition home or self-care (01) ==
LOC: HO.PMC 09:46
PROVIDERS: PCP Internal Medicine; Visit Provider Registered Nurse Emergency
DX: G58.8 Other specified mononeuropathies (principal); M62.85 Dysfunction of the multifidus muscles, lumbar region; M47.816 Spondylosis without myelopathy or radiculopathy, lumbar region; G89.29 Other chronic pain
CPT/HCPCS: 99213; G2211

== ENCOUNTER → 2025-02-13 09:45 | Outpatient (BNVA) | payer MEDICARE, SELFPAY | PROVIDERS: PCP Internal Medicine; Visit Provider Registered Nurse Emergency | DX: Z45.49 Encounter for adjustment and management of other implanted nervous system device (principal); M62.85 Dysfunction of the multifidus muscles, lumbar region; G89.29 Other chronic pain; G58.8 Other specified mononeuropathies | CPT/HCPCS: 99212 ==

== ENCOUNTER 2025-03-04 09:25 | Outpatient (AMB) | payer MEDICARE, SELFPAY ==
[2025-03-04 09:26] VITALS: BP 146/81; PULSE 78; RESP 16; O2SAT 98; BMI 29.9
--- NOTE | 2025-03-04 09:26 | MHC.OFFVIS ---
Vital Signs 03/04/25 09:26 Height 5 ft 4 in Weight 174 lb BMI 29.9 BP 146/81 H Blood Pressure Location Lt brachial Position Sitting Respiration 16 Pulse 78 Pulse Source Pulse Oximeter Pulse Oximetry (%) 98 Oxygen Delivery Method Room Air Intake Visit Reasons: Right Sided Hip Pain Pan Devulcanizer Required: No Accompanied by: Self / Same As Patient Allergies codeine Adverse Reaction (Intermediate, Verified 03/04/25 09:30) Nausea and Vomiting HPI HPI Right Sided Hip Pain: Details: History of Present Illness The patient is a 79-year-old female presenting with right hip pain and neck stiffness contributing to headaches. The right hip pain is persistent, and similar to her previous episodes of bursitis, current interventions have been ineffective. Additionally, her neck stiffness seems to be causing headaches, which are distinct from her usual headache patterns. Pain Description - Onset: Persistent right hip pain reminiscent of previous bursitis - Quality: Achy headaches - Location: Right hip and back of the head - Exacerbating Factors: Neck stiffness contributing to headaches Physical Exam - Appears afebrile. - Alert and oriented. - Mood and affect appropriate. - Follows and participates in conversation appropriately. - Respiratory effort is unlabored. - Able to transition from sit to stand unassisted. - Ambulates with bilaterally normal heel strike and toe off. - Able to stand and walk on toes and heels. - Right GTB TTP Pain Management - Affect: The patient is likely experiencing frustration due to persistent pain and ineffective treatment. - Analgesia: Current pain levels are unmanaged with existing treatments. - Adverse Effects: Not discussed. - Activities of Daily Living: Pain is impacting daily activities, necessitating improved management. - Aberrant Drug Related Behaviors: Not discussed. Procedure Informed consent was obtained. Patient was placed in the left lateral decubitus position. Ultrasound was used to visualize the right greater trochanter. The site was cleaned with ChloraPrep. A 25 gauge needle was advanced to the right greater trochanter and 40 mg of triamcinolone mixed with 3 mL of ropivacaine 0.25% was injected into the right greater trochanteric bursa. Ultrasound image of the injection was saved to the patient's record. There was no blood loss; patient tolerated procedure well. [facility] Medical History (Updated 03/04/25 @ 10:04 by Jama Hull MD) Intractable back pain Sacroiliac joint dysfunction Ischial bursitis Lumbar spinal stenosis Cluneal neuropathy Lumbar facet arthropathy Disorder of sacrum Surgical History H/O breast surgery Previous section Social History Patient Tobacco Use Status: Never used Tobacco Physical Exam Vital Signs: Last Vital Signs Pulse 78 03/04/25 09:26 Resp 16 03/04/25 09:26 BP 146/81 H 03/04/25 09:26 Pulse Ox 98 03/04/25 09:26 Oxygen Delivery Method Room Air 03/04/25 09:26 BMI result Body Mass Index 29.9 Assessment & Plan Assessment & Plan (1) Cervical spondylosis: Code(s): M47.812 - Spondylosis without myelopathy or radiculopathy, cervical region Category: Medical (2) Sacroiliac joint dysfunction: Code(s): M53.3 - Sacrococcygeal disorders, not elsewhere classified Category: Medical (3) Greater trochanteric pain syndrome: Code(s): M25.559 - Pain in unspecified hip Category: Medical Plan Plan - Increase stimulation for left SIJ pain management as current stim levels are ineffective. - Recommend physical therapy to alleviate neck stiffness and associated headaches. - S/p right GTB injection for R hip bursitis - Discuss the option of radiofrequency ablation if physical therapy does not provide relief for neck stiffness. Patient was informed and verbally consented to the use of an ambient scribe for clinic note documentation during this visit. Discussion Notes I discussed with the patient the potential to increase stimulation for pain management, acknowledging that current treatment levels are not effective. We considered physical therapy as a strategy to address neck stiffness and the headaches arising from it, with a future step potentially involving radiofrequency ablation if physical therapy proves ineffective. Additionally, I explained the possibility of a hip injection to address her persistent hip pain should her symptoms persist, exploring these options thoroughly together with potential outcomes. Patient Instructions - Attend physical therapy for neck stiffness. - Consider a hip injection if hip pain does not improve. - Return for further evaluation if symptoms do not resolve. Orders: Orders PT Evaluation and Treatment Today M47.812 - Spondylosis without myelopathy or radiculopathy, cervical region Coding Level of Care Code Est Pt Level 4 (82925) Diagnoses Cervical spondylosis M47.812 Sacroiliac joint dysfunction M53.3 Greater trochanteric pain syndrome M25.559
--- OUTSIDE RECORDS SUMMARY | 2025-03-04 09:56 | XMS_ITS | Patient Health Record ---
Author Organization [facility] Address [address] [place] [address] Care Team Providers Care Employee Development Manager Name Role Phone Cuca Castro MD Primary Care Provider Unavail able Gabbie Burton Unavailable [phone] Allergies Allergen (clinical drug ingredient) Drug/Non Drug Allergy documented on EMR Reaction Allergy Type Onset Date Status codeine Codeine sensitive , Vomiting Drug Allergy Active Reason For Referral Diagnosis 1 Pain in unspecified foot (M79.673) Referring Provider First Name Cuca Referring Provider Last Name Gloria Referred Organization [facility] Referred Provider Gabbie Burton Referred Address [address] [place], [place],[address], Referred Provider Specialty Podiatry Referral Priority Routine Medications Medication SIG (Take, Route, Frequency, Duration) Notes Start Date End Date Status Pantoprazole Sodium 40 MG TAKE 1 TABLET BY MOUTH TWICE A DAY FOR 90 DAYS Oral; Duration: 90 Days Active Verapamil HCl ER 240 MG TAKE 1 TABLET BY MOUTH EVERY DAY Oral; Duration: 90 Days Active Valsartan 80 MG TAKE 2 TABLETS BY MO UTH EVERY DAY Oral; Duration: 90 Days Active Gabapentin 100 MG Oral; Duration: 20 Days Active Levothyroxine Sodium 50 MCG TAKE 1 TABLE T BY MOUTH EVERY MORNING. TAKE ON AN EMPTY STOMACH WITH A FULL GLASS OF WATER. Oral; Duration: 90 Days Active Alpha Lipoic Acid 200 [...] Ordered Date Performed Result Body Sit e [id number]-Slukbkfe Plate 12/10/2024 N/A [id number] NAIL, 6 OR MORE 01/10/2025 N/A Encounters Encounter Location Date Provider Diagnosis [facility] [address] 12/10/2024 Gabbie Burton Ingrown nail L60.0 ; Onychomycosis B35.1 ; Pain in right toe(s) M79.674 and Pain in left toe(s) M79.[address] [facility] [address] 01/10/2025 Gabbie Burton Onychomycosis B35.1 ; Pain in right toe(s) M79.674 and Pain in left toe(s) M79.[address] [facility] [address] 09/24/2024 Gabbie Burton Assessments Encounter Date Diagnosis [...] Treatment Pending Test Test Name Order Date [id number] NAIL, 6 OR MORE 01/10/2025 [id number] Plate 12/10/2024 Insurance Providers Payer Name Payer Address Payer Phone Subscriber Number Group Number Insured Name Patient Relationship to Insured Coverage Start Date Coverage End Date [facility] [address] [place] [address] [id number] Steph Boudreaux Self - patient is the insured 2 Medical (General) History Medical History History ICD Code Arthritis Back,Hip,and Knee pain CAD (Cholesterol) Cataracts Diverticulosis Headaches/Migraines High Blood Pressure Measles Mumps Chicken pox Transfusions Surgical History Surgery Date(Month/Year) Peripheral Nerve Stimulator Implant 09/30 [employer] Implant 01/20
== END 2025-03-04 09:57 | disposition home or self-care (01) ==
LOC: HO.PMC 09:26
PROVIDERS: PCP Internal Medicine; Visit Provider Internal Medicine
DX: M47.812 Spondylosis without myelopathy or radiculopathy, cervical region (principal); M53.3 Sacrococcygeal disorders, not elsewhere classified; M25.559 Pain in unspecified hip
CPT/HCPCS: 20611; 99214

== ENCOUNTER → 2025-03-04 09:25 | Outpatient (BNVA) | payer MEDICARE, SELFPAY | PROVIDERS: PCP Internal Medicine; Visit Provider Internal Medicine | DX: M47.812 Spondylosis without myelopathy or radiculopathy, cervical region (principal); M53.3 Sacrococcygeal disorders, not elsewhere classified; M25.551 Pain in right hip | CPT/HCPCS: 20611; 99212 ==

== ENCOUNTER 2025-06-07 10:30 | Outpatient (AMB) | payer MEDICARE, SELFPAY ==
--- NOTE | 2025-06-07 10:36 | A.OFFVIS_ITS ---
Vital Signs 06/07/25 10:37 Height 5 ft 4 in Weight 168 lb BMI 28.8 BP 142/76 H Blood Pressure Location Lt brachial Position Sitting Respiration 16 Pulse 90 Pulse Source Pulse Oximeter Pulse Oximetry (%) 96 Oxygen Delivery Method Room Air Intake Visit Reasons: Increasing Hip Pain Document Management Specialist Required: No Cell Biologist: Cell Biologist Present Accompanied by: Ramon Masterson codeine Adverse Reaction (Intermediate, Verified 06/07/25 10:40) Nausea and Vomiting Medication List - Last Reconciled 06/07/25 by Lilia Corea LPN acetaminophen 1,000 mg PO Q6H PRN alpha lipoic acid 600 mg PO BID antiarthritic combination no.2 (glucosamine-chondroitin) 900 mg PO DAILY atorvastatin 10 mg PO BEDTIME biotin 5,000 mcg PO DAILY butterbur root extract (Petadolex) 75 mg PO BID chlorthalidone 25 mg PO DAILY cholecalciferol (vitamin D3) 25 mcg PO DAILY famotidine 40 mg PO DAILY gabapentin 100 mg PO TID levothyroxine 50 mcg PO DAILY multivitamin 1 tab PO DAILY pantoprazole 40 mg PO BID valsartan 80 mg PO BID verapamil ER 240 mg PO DAILY HPI HPI Increasing Hip Pain: Details: History of Present Illness The patient is a 79-year-old female presenting with hip and lower back pain. She reports difficulty ambulating due to the severe hip pain, primarily affecting the right side, which has worsened progressively. A spinal cord stimulator has been used but is ineffective for managing her sacroiliac joint and back pain. Her pain is particularly aggravated by certain movements, such as turning during bowel movements. Previously, a bursa injection provided significant and extended relief, prompting her interest in repeating the procedure on the right side. Pain Description - Onset: Gradually increasing hip pain with difficulty walking. - Quality: Sharp, shooting pain during certain movements. - Location: Right hip region and lower back. - Exacerbating factors: Movements such as turning during bowel movements. - Relieving factors: Previous bursa injection provided extended relief. - Interference with activities: Impacts mobility and daily activities. Physical Exam - GTB TTP - Appears afebrile. - Alert and oriented. - Mood and affect appropriate. - Follows and participates in conversation appropriately. - Respiratory effort is unlabored. Results - MRI images were not available for review today. Pain Management - Affect: Pain negatively impacts mobility and daily activities. - Analgesia: Spinal cord stimulator ineffective; previous bursa injection was effective. - Adverse Effects: No adverse effects noted from current regimen. - Activities of Daily Living: Significant difficulty with walking and some activities, pain during bowel movements. - Aberrant Drug Related Behaviors: None reported or observed. Procedure - Right greater trochanteric bursa injection was performed under ultrasound guidance. - Patient consented and agreed to the procedure after discussing benefits and risks. - Patient positioned in left lateral position; area prepped with chlorhexidine. - A 25-gauge needle was advanced under ultrasound guidance to the superior facet of the right greater trochanter. - 40 mg of Kenalog mixed with ropivacaine 0.5% was injected without pain. - The patient tolerated the procedure well, with no blood loss. Image saved. [facility] Medical History (Updated 03/04/25 @ 10:04 by Jama Hull MD) Intractable back pain Sacroiliac joint dysfunction Ischial bursitis Lumbar spinal stenosis Cluneal neuropathy Lumbar facet arthropathy Disorder of sacrum Surgical History H/O breast surgery Previous section Social History Patient Tobacco Use Status: Never used Tobacco Physical Exam Vital Signs: Last Vital Signs Pulse 90 06/07/25 10:37 Resp 16 06/07/25 10:37 BP 142/76 H 06/07/25 10:37 Pulse Ox 96 06/07/25 10:37 Oxygen Delivery Method Room Air 06/07/25 10:37 BMI result Body Mass Index 28.8 Assessment & Plan Assessment & Plan (1) Lumbar radicular pain: Code(s): M54.16 - Radiculopathy, lumbar region Category: Medical (2) Lumbar spinal stenosis: Code(s): M48.061 - Spinal stenosis, lumbar region without neurogenic claudication Category: Medical (3) Greater trochanteric pain syndrome: Code(s): M25.559 - Pain in unspecified hip Category: Medical Plan Plan Patient was informed and verbally consented to the use of an ambient scribe for clinic note documentation during this visit. 1. Hip Pain - Repeated right greater trochanteric bursa injection as previously effective. - Continue monitoring the effectiveness of the spinal cord stimulator. 2. Lower Back Pain - SCS has not been very effective of late. - Consider alternative pain management strategies if current methods remain ineffective. 3. Spinal Stenosis/Lumbar Radicular Pain - Plan for an L3-4 interlaminar epidural steroid injection to address low back pain radiating towards the thighs. Discussion Notes During this visit, we reviewed the limitations and ineffectiveness of the spinal cord stimulator for addressing spinal and leg pain and discussed alternative pain management options. The patient expressed interest in repeating a bursa injection due to prior success, and we proceeded with this intervention for the right greater trochanteric area. We also discussed the potential benefit of an L3-4 interlaminar epidural steroid injection to address spinal stenosis-related symptoms including radiating low back pain. The risks, benefits, and alternatives were thoroughly discussed, and the patient consented to these plan s. Patient Instructions - Monitor the effectiveness of the spinal cord stimulator and report any changes. - Follow up if pain persists or worsens. - Return for a repeat bursa injection if needed. - Plan for an L3-4 interlaminar epidural steroid injection for spinal stenosis symptoms. - Bring MRI results to the next appointment for further evaluation. Coding Level of Care Code Est Pt Level 4 (99062) Diagnoses Lumbar radicular pain M54.16 Lumbar spinal stenosis M48.061 Greater trochanteric pain syndrome M25.559
[2025-06-07 10:37] VITALS: BP 142/76; PULSE 90; RESP 16; O2SAT 96; BMI 28.8
== END 2025-06-07 11:25 | disposition home or self-care (01) ==
PROVIDERS: PCP Internal Medicine; Visit Provider Internal Medicine
DX: M54.16 Radiculopathy, lumbar region (principal); M48.061 Spinal stenosis, lumbar region without neurogenic claudication; M25.559 Pain in unspecified hip
CPT/HCPCS: 99214

== ENCOUNTER → 2025-06-07 10:30 | Outpatient (BNVA) | payer MEDICARE, SELFPAY | PROVIDERS: PCP Internal Medicine; Visit Provider Internal Medicine | DX: M25.551 Pain in right hip (principal); M54.16 Radiculopathy, lumbar region; M48.061 Spinal stenosis, lumbar region without neurogenic claudication | CPT/HCPCS: 99212 ==